=== PATIENT | male | born 1940 | race Asian ===

== ENCOUNTER 2017-02-14 14:28 | Inpatient (IN) | payer MEDICARE, OTHER ==
[~2017-02-14] VITALS: Ht 162.6 cm; Wt 75.9 kg
[~2017-02-14 14:28] MED LIST: ACET-2902 PO; ALLO300 PO; AMLO-511 PO; ASPI-1093 PO; ATOR20TA86 PO; HYDR-2924 PO; INSLAN SQ
[2017-02-14 15:42] LABS: GLUCOSE,POINT OF CARE 152 MG/DL (70-110)
[2017-02-14] MEDS ORDERED: FAMOTIDINE 10 MG/ML 2 ML VIAL IVP ONE (16:45)
[2017-02-14] MEDS ORDERED: ONDANSETRON HCL 4 MG/2 ML VIAL IVP ONE (16:45)
[2017-02-14] MEDS ORDERED: MORPHINE SULFATE 2 MG/ML SYRINGE IVP ONE ×2 (16:45→21:45)
[2017-02-14 17:23] LABS: BASOPHILS # (AUTO) 0.05 K/uL (0.00-0.20); BASOPHILS % (AUTO) 0.3 % (0.0-2.0); EOSINOPHILS # (AUTO) 0.09 K/uL (0.00-0.70); EOSINOPHILS % (AUTO) 0.57 % (1.0-6.0); HEMOGLOBIN 11.4 g/dL (13.5-17.5); LYMPHOCYTES # (AUTO) 1.4 K/uL (1.0-4.8); LYMPHOCYTES % (AUTO) 8.9 % (22.0-44.0); MEAN CORPUSCULAR HEMOGLOBIN 31.8 pg (26.0-34.0); MEAN CORPUSCULAR HGB CONC 32.6 G/dL (31.0-37.0); MEAN CORPUSCULAR VOLUME 98 fL (80-100); MONOCYTES # (AUTO) 1.1 K/uL (0.1-1.0); MONOCYTES % (AUTO) 6.7 % (2.0-9.0); NEUTROPHILS # (AUTO) 13.4 K/uL (1.8-7.7); NEUTROPHILS % (AUTO) 83.6 % (40.0-70.0); PLATELET COUNT (AUTO) 177 K/uL (150-450); RED BLOOD CELL COUNT(AUTO) 3.58 MIL/uL (4.50-5.90); RED CELL DISTRIBUTION WIDTH 14.7 % (11.5-14.5)
[2017-02-14 17:31] LABS: ANION GAP 10 mmol/L (8-16); CALCIUM, TOTAL 9.7 mg/dL (8.8-10.5); CARBON DIOXIDE 30 mmol/L (22-29); CHLORIDE 92 mmol/L (98-107); CREATININE 7.14 mg/dL (0.60-1.30); GLOMERULAR FILTR. RATE CALC 8 mL/min (>60); POTASSIUM 4.7 mmol/L (3.5-5.1); SODIUM SERUM 132 mmol/L (136-145); UREA NITROGEN, BLOOD 40 mg/dL (7-18)
[2017-02-14 17:36] LABS: INR 1.1 (0.9-1.1); PROTHROMBIN TIME 11.2 SEC (9.4-11.6)
[2017-02-14 17:51] LABS: B-TYPE NATRIURETIC PEPTIDE 3560 pg/mL (0-100)
[2017-02-14 17:57] LABS: ALANINE AMINOTRANSFERASE 31 U/L (12-78); ALBUMIN 3.3 g/dL (3.4-5.0); ASPARTATE AMINOTRANSFERASE 35 U/L (15-37); BILIRUBIN,TOTAL 0.9 mg/dL (0.1-1.0); CREATINE KINASE MB 1.7 ng/mL (0-5); CREATINE KINASE, TOTAL 517 U/L (39-308); TOTAL PROTEIN, SERUM 8.1 g/dL (6.4-8.2)
[2017-02-14] MEDS ORDERED: BARIUM SULFATE 0.1% SUSPENSION 450 ML BOTTLE PO ONE (18:00)
[2017-02-14] MEDS ORDERED: NITROGLYCERIN 2% (1 GM=INCH) PACKET TP ONE (19:15)
[2017-02-14] MEDS ORDERED: ONDANSETRON HCL 4 MG/2 ML VIAL IVP PRN ×2 (21:15→21:30)
[2017-02-14] MEDS ORDERED: ACETAMINOPHEN 325 MG TABLET PO PRN (21:15)
[2017-02-14] MEDS ORDERED: HEPARIN SODIUM 25000 UNITS/D5W 250 ML IV PRN (21:15)
[2017-02-14] MEDS ORDERED: ASPIRIN 325 MG EC TABLET PO ONE (21:15)
[2017-02-14] MEDS ORDERED: 0.9% SODIUM CHLORIDE 10 ML SYRINGE IVP PRN (21:15)
[2017-02-14] MEDS ORDERED: HEPARIN SODIUM,PORCINE 5,000 UNITS/ML VIAL IVP ONE (21:30)
[2017-02-14] MEDS ORDERED: MORPHINE SULFATE 2 MG/ML SYRINGE IVP PRN (21:30)
[2017-02-14] MEDS ORDERED: IPRATROPIUM BROMIDE 0.5 MG/2.5 ML NEB SOLUTION NEB PRN (21:30)
[2017-02-14] MEDS ORDERED: ZOLPIDEM TARTRATE 5 MG TABLET PO PRN (21:30)
[2017-02-14] MEDS ORDERED: MAGNESIUM HYDROXIDE SUSPENSION 30 ML UDCUP PO PRN (21:30)
[2017-02-14] MEDS ORDERED: HEPARIN SODIUM,PORCINE 5,000 UNITS/ML VIAL IVP PRN ×2 (21:30)
[2017-02-14] MEDS: HEPARIN SODIUM 25000 UNITS/D5W 250 ML IV PRN (21:37)
[2017-02-15] VITALS (8 sets, daily range): BP systolic 134–168; BP diastolic 61–88
[2017-02-15] MEDS ORDERED: SODIUM CHLORIDE 0.9% 250 ML IV ONE (02:03)
[2017-02-15] MEDS: CefTRIAXone 1 GM/DEXTROSE 50 ML IV SCH ×2 (02:22→23:41)
[2017-02-15] MEDS: NITROGLYCERIN 2% (1 GM=INCH) PACKET TP SCH ×4 (02:23→18:00)
[2017-02-15] MEDS: AZITHROMYCIN 500 MG/NS 250 ML IV SCH ×2 (02:23→23:41)
[2017-02-15] MEDS: HYDROCODONE/ACETAMINOPHEN 5-325 MG TABLET PO PRN (05:24)
[2017-02-15 06:16] LABS: BASOPHILS # (AUTO) 0.06 K/uL (0.00-0.20); BASOPHILS % (AUTO) 0.4 % (0.0-2.0); EOSINOPHILS # (AUTO) 0.41 K/uL (0.00-0.70); EOSINOPHILS % (AUTO) 3.29 % (1.0-6.0); HEMOGLOBIN 10.2 g/dL (13.5-17.5); LYMPHOCYTES # (AUTO) 1.4 K/uL (1.0-4.8); MEAN CORPUSCULAR HEMOGLOBIN 31.7 pg (26.0-34.0); MEAN CORPUSCULAR HGB CONC 32.9 G/dL (31.0-37.0); MEAN CORPUSCULAR VOLUME 96 fL (80-100); MONOCYTES # (AUTO) 0.8 K/uL (0.1-1.0); MONOCYTES % (AUTO) 6.1 % (2.0-9.0); NEUTROPHILS # (AUTO) 9.9 K/uL (1.8-7.7); NEUTROPHILS % (AUTO) 79.1 % (40.0-70.0); PLATELET COUNT (AUTO) 181 K/uL (150-450); RED BLOOD CELL COUNT(AUTO) 3.22 MIL/uL (4.50-5.90); RED CELL DISTRIBUTION WIDTH 14.6 % (11.5-14.5); WHITE BLOOD COUNT (AUTO) 12.6 K/uL (4.5-11.0)
[2017-02-15 06:25] LABS: PROTHROMBIN TIME 10.7 SEC (9.4-11.6)
[2017-02-15] MEDS: INSULIN ASPART 100 UNITS/ML SQ PRN ×2 (06:52→11:44)
[2017-02-15 07:02] LABS: ALBUMIN 2.7 g/dL (3.4-5.0); BILIRUBIN,TOTAL 0.5 mg/dL (0.1-1.0); CALCIUM, TOTAL 9.2 mg/dL (8.8-10.5); CHOL/HDL RATIO 3.2 (4.2-7.3); CREATININE 8.06 mg/dL (0.60-1.30); POTASSIUM 4.7 mmol/L (3.5-5.1); TOTAL PROTEIN, SERUM 7.1 g/dL (6.4-8.2)
[2017-02-15 08:07] LABS: GLUCOSE,POINT OF CARE 117 MG/DL (70-110)
[2017-02-15 08:17] LABS: GLUCOSE,POINT OF CARE 154 MG/DL (70-110)
[2017-02-15] MEDS: ASPIRIN 81 MG CHEWABLE TABLET PO SCH (09:00)
[2017-02-15] MEDS ORDERED: HydrALAZINE HCL 50 MG TABLET PO SCH (09:00)
[2017-02-15] MEDS: CLOPIDOGREL BISULFATE 75 MG TABLET PO SCH (09:00)
[2017-02-15] MEDS: ALLOPURINOL 100 MG TABLET PO SCH (09:00)
[2017-02-15] MEDS: PANTOPRAZOLE SODIUM 40 MG/VIAL IVP SCH (09:14)
[2017-02-15] MEDS: DOCUSATE SODIUM 100 MG CAPSULE PO SCH ×2 (09:15→21:12)
[2017-02-15] MEDS: INSULIN DETEMIR 100 UNITS/ML SQ SCH ×2 (09:18→21:00)
[2017-02-15] MEDS ORDERED: ALBUMIN HUMAN 25%-12.5GM/50ML IV BOTTLE IV PRN (12:45)
[2017-02-15] MEDS ORDERED: LIDOCAINE HCL/PF 1% 2 ML VIAL ID PRN (12:45)
[2017-02-15] MEDS ORDERED: MANNITOL 25%-12.5 GM/50 ML VIAL IVP PRN (12:45)
[2017-02-15] MEDS ORDERED: VANCOMYCIN HCL 1 GM/D5% WATER 200 ML IV PRN (13:45)
[2017-02-15 15:02] LABS: GLUCOSE,POINT OF CARE 165 MG/DL (70-110)
[2017-02-15] MEDS ORDERED: VANCOMYCIN HCL 1 GM/D5% WATER 200 ML IV ONE (16:00)
[2017-02-15] MEDS: AmLODIPine BESYLATE 5 MG TABLET PO SCH (16:07)
[2017-02-15] MEDS: CARVEDILOL 3.125 MG TABLET PO SCH ×2 (16:08→21:12)
[2017-02-15] MEDS ORDERED: LIDOCAINE HCL/PF 1% 2 ML VIAL IM ONE (17:34)
[2017-02-15] MEDS: DEXTROSE 50%-WATER 25 GM/50 ML SYRINGE IVP PRN (18:16)
[2017-02-15] MEDS: ENALAPRIL MALEATE 5 MG TABLET PO SCH (18:43)
[2017-02-15] MEDS: HEPARIN SODIUM 25000 UNITS/D5W 250 ML IV PRN (19:49)
[2017-02-15] MEDS ORDERED: ATORVASTATIN CALCIUM 20 MG TABLET PO SCH (21:00)
[2017-02-15] MEDS: ATORVASTATIN CALCIUM 40 MG TABLET PO SCH (21:13)
[2017-02-16] VITALS: BP 130/51
[2017-02-16 04:00] VITALS: BP 133/65
[2017-02-16 05:19] LABS: ALBUMIN 2.4 g/dL (3.4-5.0); BILIRUBIN,TOTAL 0.5 mg/dL (0.1-1.0); CALCIUM, TOTAL 9.1 mg/dL (8.8-10.5); CREATININE 5.9 mg/dL (0.60-1.30); MAGNESIUM 1.7 mg/dL (1.80-2.40); POTASSIUM 4.4 mmol/L (3.5-5.1); TOTAL PROTEIN, SERUM 6.7 g/dL (6.4-8.2)
[2017-02-16 05:29] LABS: EOSINOPHILS % (AUTO) 0.1 % (1.0-6.0); HEMOGLOBIN 9.6 g/dL (13.5-17.5); LYMPHOCYTES # (AUTO) 1.2 K/uL (1.0-4.8); LYMPHOCYTES % (AUTO) 8.3 % (22.0-44.0); MEAN CORPUSCULAR HEMOGLOBIN 31.4 pg (26.0-34.0); MEAN CORPUSCULAR HGB CONC 32.1 G/dL (31.0-37.0); MEAN CORPUSCULAR VOLUME 98 fL (80-100); MONOCYTES # (AUTO) 1.1 K/uL (0.1-1.0); MONOCYTES % (AUTO) 7.8 % (2.0-9.0); NEUTROPHILS # (AUTO) 11.9 K/uL (1.8-7.7); NEUTROPHILS % (AUTO) 83.8 % (40.0-70.0); PLATELET COUNT (AUTO) 176 K/uL (150-450); RED BLOOD CELL COUNT(AUTO) 3.07 MIL/uL (4.50-5.90); RED CELL DISTRIBUTION WIDTH 14.9 % (11.5-14.5); WHITE BLOOD COUNT (AUTO) 14.3 K/uL (4.5-11.0)
[2017-02-16] MEDS: NITROGLYCERIN 2% (1 GM=INCH) PACKET TP SCH ×4 (06:44→17:50)
[2017-02-16] MEDS: DEXTROSE 50%-WATER 25 GM/50 ML SYRINGE IVP PRN (06:45)
[2017-02-16 07:51] LABS: GLUCOSE,POINT OF CARE 44 MG/DL (70-110)
[2017-02-16 07:51] LABS: GLUCOSE,POINT OF CARE 99 MG/DL (70-110)
[2017-02-16 07:51] LABS: GLUCOSE,POINT OF CARE 143 MG/DL (70-110)
[2017-02-16 07:52] LABS: GLUCOSE,POINT OF CARE 53 MG/DL (70-110)
[2017-02-16 07:52] LABS: GLUCOSE,POINT OF CARE 108 MG/DL (70-110)
[2017-02-16 08:00] VITALS: BP 140/55
[2017-02-16] MEDS: PANTOPRAZOLE SODIUM 40 MG/VIAL IVP SCH (09:02)
[2017-02-16] MEDS: ASPIRIN 81 MG CHEWABLE TABLET PO SCH (09:02)
[2017-02-16] MEDS: CLOPIDOGREL BISULFATE 75 MG TABLET PO SCH (09:03)
[2017-02-16] MEDS: AmLODIPine BESYLATE 5 MG TABLET PO SCH (09:03)
[2017-02-16] MEDS: DOCUSATE SODIUM 100 MG CAPSULE PO SCH ×2 (09:03→20:56)
[2017-02-16] MEDS: CARVEDILOL 3.125 MG TABLET PO SCH ×2 (09:03→20:57)
[2017-02-16] MEDS: ENALAPRIL MALEATE 5 MG TABLET PO SCH (09:07)
[2017-02-16] MEDS: ALLOPURINOL 100 MG TABLET PO SCH (09:07)
[2017-02-16 12:00] VITALS: BP 120/57
[2017-02-16] MEDS: INSULIN ASPART 100 UNITS/ML SQ PRN ×2 (12:06→23:37)
[2017-02-16] MEDS: HEPARIN SODIUM 25000 UNITS/D5W 250 ML IV PRN (15:17)
[2017-02-16 15:57] LABS: GLUCOSE,POINT OF CARE 141 MG/DL (70-110)
[2017-02-16 16:00] VITALS: BP 137/67
[2017-02-16 20:00] VITALS: BP 150/77
[2017-02-16] MEDS: ATORVASTATIN CALCIUM 40 MG TABLET PO SCH (20:57)
[2017-02-16] MEDS: INSULIN DETEMIR 100 UNITS/ML SQ SCH (21:00)
[2017-02-17] VITALS (9 sets, daily range): BP systolic 104–144; BP diastolic 47–68
[2017-02-17] MEDS ORDERED: SODIUM CHLORIDE 0.9% 250 ML IV ONE ×2 (01:35→23:56)
[2017-02-17] MEDS: NITROGLYCERIN 2% (1 GM=INCH) PACKET TP SCH ×4 (01:37→18:16)
[2017-02-17 04:07] LABS: GLUCOSE,POINT OF CARE 124 MG/DL (70-110)
[2017-02-17] MEDS: HYDROCODONE/ACETAMINOPHEN 5-325 MG TABLET PO PRN ×4 (04:12→23:35)
[2017-02-17 05:12] LABS: GLUCOSE,POINT OF CARE 114 MG/DL (70-110)
[2017-02-17 05:40] LABS: BASOPHILS % (AUTO) 0.1 % (0.0-2.0); EOSINOPHILS % (AUTO) 0.4 % (1.0-6.0); HEMATOCRIT 27.8 % (41-53); HEMOGLOBIN 8.7 g/dL (13.5-17.5); LYMPHOCYTES # (AUTO) 0.9 K/uL (1.0-4.8); LYMPHOCYTES % (AUTO) 6.9 % (22.0-44.0); MEAN CORPUSCULAR HEMOGLOBIN 30.7 pg (26.0-34.0); MEAN CORPUSCULAR HGB CONC 31.4 G/dL (31.0-37.0); MEAN CORPUSCULAR VOLUME 98 fL (80-100); MONOCYTES # (AUTO) 0.9 K/uL (0.1-1.0); MONOCYTES % (AUTO) 6.6 % (2.0-9.0); NEUTROPHILS # (AUTO) 11.7 K/uL (1.8-7.7); PLATELET COUNT (AUTO) 187 K/uL (150-450); RED BLOOD CELL COUNT(AUTO) 2.85 MIL/uL (4.50-5.90); RED CELL DISTRIBUTION WIDTH 15.6 % (11.5-14.5); WHITE BLOOD COUNT (AUTO) 13.7 K/uL (4.5-11.0)
[2017-02-17 06:11] LABS: ALBUMIN 2.3 g/dL (3.4-5.0); BILIRUBIN,TOTAL 0.5 mg/dL (0.1-1.0); CALCIUM, TOTAL 9.2 mg/dL (8.8-10.5); CREATININE 8.31 mg/dL (0.60-1.30); MAGNESIUM 1.9 mg/dL (1.80-2.40); TOTAL PROTEIN, SERUM 6.5 g/dL (6.4-8.2)
[2017-02-17 07:12] LABS: GLUCOSE,POINT OF CARE 149 MG/DL (70-110)
[2017-02-17] MEDS ORDERED: VANCOMYCIN HCL 1.25 GM in DEXTROSE 5%-WATER 250 ML IV ONE (08:00)
[2017-02-17] MEDS: CLOPIDOGREL BISULFATE 75 MG TABLET PO SCH (08:25)
[2017-02-17] MEDS: PANTOPRAZOLE SODIUM 40 MG/VIAL IVP SCH (08:25)
[2017-02-17] MEDS: ENALAPRIL MALEATE 5 MG TABLET PO SCH (08:26)
[2017-02-17] MEDS: CARVEDILOL 3.125 MG TABLET PO SCH ×2 (08:26→21:02)
[2017-02-17] MEDS: ASPIRIN 81 MG CHEWABLE TABLET PO SCH (08:27)
[2017-02-17] MEDS: AmLODIPine BESYLATE 5 MG TABLET PO SCH (08:28)
[2017-02-17] MEDS: DOCUSATE SODIUM 100 MG CAPSULE PO SCH ×2 (08:28→21:02)
[2017-02-17] MEDS: ALLOPURINOL 100 MG TABLET PO SCH (08:28)
[2017-02-17] MEDS ORDERED: AMPICILLIN SODIUM/SULBACTAM NA 3 GM in SODIUM CHLORIDE 0.9% 100 ML IV SCH (12:00)
[2017-02-17] MEDS: INSULIN ASPART 100 UNITS/ML SQ PRN ×2 (12:29→18:00)
[2017-02-17 17:42] LABS: GLUCOSE COMMENT 1 Received Meds; GLUCOSE,POINT OF CARE 160 MG/DL (70-110)
[2017-02-17] MEDS: INSULIN DETEMIR 100 UNITS/ML SQ SCH (21:00)
[2017-02-17] MEDS: ATORVASTATIN CALCIUM 40 MG TABLET PO SCH (21:02)
[2017-02-18] VITALS (8 sets, daily range): BP systolic 116–138; BP diastolic 42–85
[2017-02-18] MEDS: NITROGLYCERIN 2% (1 GM=INCH) PACKET TP SCH ×4 (00:06→18:13)
[2017-02-18] MEDS: NAFCILLIN SODIUM 2 GM in DEXTROSE 5%-WATER 100 ML IV SCH ×6 (00:08→20:31)
[2017-02-18] MEDS: AZITHROMYCIN 500 MG/NS 250 ML IV SCH ×2 (00:49→23:22)
[2017-02-18 07:07] LABS: BASOPHILS % (AUTO) 0.1 % (0.0-2.0); EOSINOPHILS % (AUTO) 2.3 % (1.0-6.0); HEMATOCRIT 28.6 % (41-53); HEMOGLOBIN 9.2 g/dL (13.5-17.5); LYMPHOCYTES # (AUTO) 1.3 K/uL (1.0-4.8); LYMPHOCYTES % (AUTO) 12.8 % (22.0-44.0); MEAN CORPUSCULAR HEMOGLOBIN 31.3 pg (26.0-34.0); MEAN CORPUSCULAR HGB CONC 32.1 G/dL (31.0-37.0); MEAN CORPUSCULAR VOLUME 97 fL (80-100); MONOCYTES # (AUTO) 0.9 K/uL (0.1-1.0); NEUTROPHILS # (AUTO) 7.5 K/uL (1.8-7.7); NEUTROPHILS % (AUTO) 75.8 % (40.0-70.0); PLATELET COUNT (AUTO) 190 K/uL (150-450); RED BLOOD CELL COUNT(AUTO) 2.94 MIL/uL (4.50-5.90); RED CELL DISTRIBUTION WIDTH 15.1 % (11.5-14.5); WHITE BLOOD COUNT (AUTO) 9.9 K/uL (4.5-11.0)
[2017-02-18 07:09] LABS: ALBUMIN 2.2 g/dL (3.4-5.0); BILIRUBIN,TOTAL 0.9 mg/dL (0.1-1.0); CREATININE 10.72 mg/dL (0.60-1.30); MAGNESIUM 2.1 mg/dL (1.80-2.40); POTASSIUM 5.1 mmol/L (3.5-5.1); TOTAL PROTEIN, SERUM 6.5 g/dL (6.4-8.2)
[2017-02-18] MEDS: PANTOPRAZOLE SODIUM 40 MG/VIAL IVP SCH (09:55)
[2017-02-18] MEDS: DOCUSATE SODIUM 100 MG CAPSULE PO SCH ×2 (09:55→20:31)
[2017-02-18] MEDS: ASPIRIN 81 MG CHEWABLE TABLET PO SCH (09:56)
[2017-02-18] MEDS: CARVEDILOL 3.125 MG TABLET PO SCH ×2 (09:56→20:31)
[2017-02-18] MEDS: CLOPIDOGREL BISULFATE 75 MG TABLET PO SCH (09:56)
[2017-02-18] MEDS: ALLOPURINOL 100 MG TABLET PO SCH (09:57)
[2017-02-18] MEDS: ENALAPRIL MALEATE 5 MG TABLET PO SCH (16:32)
[2017-02-18] MEDS ORDERED: INDIUM IN-111 OXYQUINOLINE/.5MCL ISOTOPE 1 EA INJ INJ ONE (17:20)
[2017-02-18] MEDS: INSULIN DETEMIR 100 UNITS/ML SQ SCH (20:30)
[2017-02-18] MEDS: ATORVASTATIN CALCIUM 40 MG TABLET PO SCH (20:31)
[2017-02-18] MEDS: INSULIN ASPART 100 UNITS/ML SQ PRN (20:34)
[2017-02-19] VITALS (9 sets, daily range): BP systolic 100–137; BP diastolic 41–56
[2017-02-19] MEDS: NITROGLYCERIN 2% (1 GM=INCH) PACKET TP SCH ×4 (01:21→17:10)
[2017-02-19] MEDS: NAFCILLIN SODIUM 2 GM in DEXTROSE 5%-WATER 100 ML IV SCH ×6 (01:22→20:17)
[2017-02-19 07:29] LABS: BASOPHILS # (AUTO) 0.02 K/uL (0.00-0.20); BASOPHILS % (AUTO) 0.2 % (0.0-2.0); EOSINOPHILS # (AUTO) 0.15 K/uL (0.00-0.70); EOSINOPHILS % (AUTO) 1.67 % (1.0-6.0); HEMATOCRIT 27.6 % (41-53); HEMOGLOBIN 9.1 g/dL (13.5-17.5); LYMPHOCYTES % (AUTO) 11.5 % (22.0-44.0); MEAN CORPUSCULAR HEMOGLOBIN 31.9 pg (26.0-34.0); MEAN CORPUSCULAR HGB CONC 32.8 G/dL (31.0-37.0); MEAN CORPUSCULAR VOLUME 97 fL (80-100); MONOCYTES # (AUTO) 0.9 K/uL (0.1-1.0); MONOCYTES % (AUTO) 9.7 % (2.0-9.0); NEUTROPHILS # (AUTO) 6.7 K/uL (1.8-7.7); NEUTROPHILS % (AUTO) 76.9 % (40.0-70.0); PLATELET COUNT (AUTO) 203 K/uL (150-450); RED BLOOD CELL COUNT(AUTO) 2.84 MIL/uL (4.50-5.90); RED CELL DISTRIBUTION WIDTH 15.3 % (11.5-14.5); WHITE BLOOD COUNT (AUTO) 8.8 K/uL (4.5-11.0)
[2017-02-19] MEDS ORDERED: FentaNYL CITRATE-PF 100 MCG/2 ML VIAL ONE (07:40)
[2017-02-19] MEDS ORDERED: BENZOCAINE 20% 50 MCG/SPRAY 57 GM ONE (07:41)
[2017-02-19] MEDS ORDERED: MIDAZOLAM HCL 2 MG/2 ML VIAL ONE (07:41)
[2017-02-19] MEDS ORDERED: SODIUM CHLORIDE 0.9% 500 ML IV ONE (07:46)
[2017-02-19] MEDS ORDERED: MIDAZOLAM HCL 2 MG/2 ML VIAL IVP ONE (07:47)
[2017-02-19] MEDS ORDERED: FentaNYL CITRATE-PF 100 MCG/2 ML VIAL IVP ONE (07:47)
[2017-02-19] MEDS ORDERED: BENZOCAINE 20% 30 ML SOLUTION TP ONE (07:49)
[2017-02-19 07:54] LABS: BILIRUBIN,TOTAL 2.1 mg/dL (0.1-1.0); CREATININE 7.75 mg/dL (0.60-1.30); MAGNESIUM 2.1 mg/dL (1.80-2.40); POTASSIUM 4.7 mmol/L (3.5-5.1); TOTAL PROTEIN, SERUM 6.2 g/dL (6.4-8.2)
[2017-02-19] MEDS: ENALAPRIL MALEATE 5 MG TABLET PO SCH (09:00)
[2017-02-19] MEDS ORDERED: AmLODIPine BESYLATE 2.5 MG TABLET PO SCH (09:00)
[2017-02-19] MEDS: PANTOPRAZOLE SODIUM 40 MG/VIAL IVP SCH (09:10)
[2017-02-19] MEDS: CLOPIDOGREL BISULFATE 75 MG TABLET PO SCH (09:18)
[2017-02-19] MEDS: DOCUSATE SODIUM 100 MG CAPSULE PO SCH ×2 (09:18→20:16)
[2017-02-19] MEDS: CARVEDILOL 3.125 MG TABLET PO SCH ×2 (09:18→20:16)
[2017-02-19] MEDS: ALLOPURINOL 100 MG TABLET PO SCH (09:18)
[2017-02-19] MEDS: ASPIRIN 81 MG CHEWABLE TABLET PO SCH (09:18)
[2017-02-19] MEDS: INSULIN ASPART 100 UNITS/ML SQ PRN ×2 (12:28→18:04)
[2017-02-19 17:08] LABS: GLUCOSE,POINT OF CARE 105 MG/DL (70-110)
[2017-02-19] MEDS: ATORVASTATIN CALCIUM 40 MG TABLET PO SCH (20:16)
[2017-02-19] MEDS: OXYGEN THERAPY IH SCH (20:17)
[2017-02-19] MEDS: INSULIN DETEMIR 100 UNITS/ML SQ SCH (20:22)
[2017-02-20] MEDS: NITROGLYCERIN 2% (1 GM=INCH) PACKET TP SCH ×4 (00:24→17:55)
[2017-02-20] MEDS: NAFCILLIN SODIUM 2 GM in DEXTROSE 5%-WATER 100 ML IV SCH ×6 (00:25→21:19)
[2017-02-20 01:04] LABS: GLUCOSE COMMENT 1 Received Meds; GLUCOSE,POINT OF CARE 176 MG/DL (70-110)
[2017-02-20 04:35] VITALS: BP 126/50
[2017-02-20] MEDS: INSULIN ASPART 100 UNITS/ML SQ PRN ×2 (06:25→17:55)
[2017-02-20 06:49] LABS: BASOPHILS % (AUTO) 0.1 % (0.0-2.0); EOSINOPHILS % (AUTO) 4.1 % (1.0-6.0); HEMATOCRIT 29.4 % (41-53); HEMOGLOBIN 9.4 g/dL (13.5-17.5); LYMPHOCYTES # (AUTO) 1.5 K/uL (1.0-4.8); LYMPHOCYTES % (AUTO) 15.2 % (22.0-44.0); MEAN CORPUSCULAR VOLUME 97 fL (80-100); MONOCYTES % (AUTO) 10.2 % (2.0-9.0); NEUTROPHILS % (AUTO) 70.4 % (40.0-70.0); PLATELET COUNT (AUTO) 241 K/uL (150-450); RED BLOOD CELL COUNT(AUTO) 3.03 MIL/uL (4.50-5.90); RED CELL DISTRIBUTION WIDTH 15.8 % (11.5-14.5); WHITE BLOOD COUNT (AUTO) 9.9 K/uL (4.5-11.0)
[2017-02-20 07:20] VITALS: BP 123/88
[2017-02-20 07:24] LABS: ALBUMIN 1.9 g/dL (3.4-5.0); BILIRUBIN,TOTAL 2.6 mg/dL (0.1-1.0); CALCIUM, TOTAL 9.1 mg/dL (8.8-10.5); CREATININE 10.27 mg/dL (0.60-1.30); MAGNESIUM 2.4 mg/dL (1.80-2.40); POTASSIUM 5.2 mmol/L (3.5-5.1); TOTAL PROTEIN, SERUM 6.4 g/dL (6.4-8.2)
[2017-02-20] MEDS: OXYGEN THERAPY IH SCH ×2 (07:38→21:19)
[2017-02-20] MEDS: PANTOPRAZOLE SODIUM 40 MG/VIAL IVP SCH (07:41)
[2017-02-20] MEDS ORDERED: SODIUM CHLORIDE 0.9% 100 ML ONE (07:41)
[2017-02-20] MEDS: CARVEDILOL 3.125 MG TABLET PO SCH ×2 (09:00→21:19)
[2017-02-20] MEDS: DOCUSATE SODIUM 100 MG CAPSULE PO SCH ×2 (09:00→21:00)
[2017-02-20] MEDS: ASPIRIN 81 MG CHEWABLE TABLET PO SCH (09:00)
[2017-02-20] MEDS: CLOPIDOGREL BISULFATE 75 MG TABLET PO SCH (09:01)
[2017-02-20] MEDS: ALLOPURINOL 100 MG TABLET PO SCH (09:01)
[2017-02-20] MEDS ORDERED: SODIUM CHLORIDE 0.9% 2,000 ML IV ONE (09:11)
[2017-02-20 10:44] LABS: GLUCOSE,POINT OF CARE 143 MG/DL (70-110)
[2017-02-20 10:44] LABS: GLUCOSE,POINT OF CARE 125 MG/DL (70-110)
[2017-02-20 11:05] VITALS: BP 123/74
[2017-02-20] MEDS ORDERED: ALBUMIN HUMAN 25%-12.5GM/50ML IV BOTTLE IV ONE (12:48)
[2017-02-20] MEDS ORDERED: LIDOCAINE HCL/PF 1% 2 ML VIAL IM ONE (12:48)
[2017-02-20] MEDS: AZITHROMYCIN 250 MG TABLET PO SCH (13:52)
[2017-02-20] MEDS: HYDROCODONE/ACETAMINOPHEN 5-325 MG TABLET PO PRN (16:02)
[2017-02-20] MEDS: ENALAPRIL MALEATE 5 MG TABLET PO SCH (16:02)
[2017-02-20 16:13] VITALS: BP 141/75
[2017-02-20 18:00] VITALS: BP 143/55
[2017-02-20 20:00] VITALS: BP 122/46
[2017-02-20] MEDS: INSULIN DETEMIR 100 UNITS/ML SQ SCH (21:00)
[2017-02-20] MEDS: ATORVASTATIN CALCIUM 40 MG TABLET PO SCH (21:19)
[2017-02-21] VITALS (18 sets, daily range): BP systolic 119–158; BP diastolic 38–72
[2017-02-21] MEDS: NITROGLYCERIN 2% (1 GM=INCH) PACKET TP SCH ×2 (00:08→05:22)
[2017-02-21] MEDS: NAFCILLIN SODIUM 2 GM in DEXTROSE 5%-WATER 100 ML IV SCH ×6 (01:29→21:12)
[2017-02-21 07:15] LABS: ALBUMIN 1.7 g/dL (3.4-5.0); BILIRUBIN,TOTAL 2.4 mg/dL (0.1-1.0); CALCIUM, TOTAL 9.1 mg/dL (8.8-10.5); CREATININE 7.24 mg/dL (0.60-1.30); POTASSIUM 4.7 mmol/L (3.5-5.1); TOTAL PROTEIN, SERUM 6.1 g/dL (6.4-8.2)
[2017-02-21 07:22] LABS: BASOPHILS # (AUTO) 0.03 K/uL (0.00-0.20); BASOPHILS % (AUTO) 0.4 % (0.0-2.0); EOSINOPHILS # (AUTO) 0.47 K/uL (0.00-0.70); EOSINOPHILS % (AUTO) 5.11 % (1.0-6.0); HEMATOCRIT 27.1 % (41-53); HEMOGLOBIN 8.8 g/dL (13.5-17.5); LYMPHOCYTES # (AUTO) 1.3 K/uL (1.0-4.8); LYMPHOCYTES % (AUTO) 13.7 % (22.0-44.0); MEAN CORPUSCULAR HEMOGLOBIN 31.4 pg (26.0-34.0); MEAN CORPUSCULAR HGB CONC 32.4 G/dL (31.0-37.0); MEAN CORPUSCULAR VOLUME 97 fL (80-100); MONOCYTES # (AUTO) 0.9 K/uL (0.1-1.0); MONOCYTES % (AUTO) 10.1 % (2.0-9.0); NEUTROPHILS # (AUTO) 6.5 K/uL (1.8-7.7); NEUTROPHILS % (AUTO) 70.8 % (40.0-70.0); PLATELET COUNT (AUTO) 235 K/uL (150-450); RED BLOOD CELL COUNT(AUTO) 2.79 MIL/uL (4.50-5.90); RED CELL DISTRIBUTION WIDTH 15.5 % (11.5-14.5); WHITE BLOOD COUNT (AUTO) 9.2 K/uL (4.5-11.0)
[2017-02-21 07:37] LABS: GLUCOSE,POINT OF CARE 127 MG/DL (70-110)
[2017-02-21 07:37] LABS: GLUCOSE,POINT OF CARE 128 MG/DL (70-110)
[2017-02-21 07:37] LABS: GLUCOSE,POINT OF CARE 152 MG/DL (70-110)
[2017-02-21 08:33] LABS: RBC MORPHOLOGY COMMENT DIMORPHIC RBC
[2017-02-21] MEDS ORDERED: LIDOCAINE HCL/PF 1% 30 ML VIAL ONE ×2 (08:44→09:17)
[2017-02-21] MEDS ORDERED: SODIUM BICARBONATE 50 MEQ/50 ML VIAL ONE (08:44)
[2017-02-21] MEDS ORDERED: HEPARIN SODIUM 1000 UNITS/NS 1,000 ML ONE (08:45)
[2017-02-21] MEDS ORDERED: IOHEXOL 300 MG/ML 150 ML VIAL ONE (08:45)
[2017-02-21] MEDS: CLOPIDOGREL BISULFATE 75 MG TABLET PO SCH (09:00)
[2017-02-21] MEDS ORDERED: IOHEXOL 300 MG/ML 100 ML VIAL ONE ×2 (09:08→09:45)
[2017-02-21] MEDS ORDERED: HEPARIN SODIUM 2,000 UNITS in HEPARIN SODIUM 1000 UNITS/NS 1,000 ML IARTER ONE (09:43)
[2017-02-21] MEDS ORDERED: SODIUM CHLORIDE 0.9% 500 ML IV ONE (09:43)
[2017-02-21] MEDS ORDERED: IOHEXOL 300 MG/ML 100 ML VIAL IARTER ONE ×2 (09:45)
[2017-02-21] MEDS ORDERED: LIDOCAINE 1% 30 ML/SOD BICARB 8.4% 4 ML SQ ONE (09:45)
[2017-02-21] MEDS ORDERED: IOHEXOL 300 MG/ML 150 ML VIAL IARTER ONE (09:45)
[2017-02-21] MEDS: ALLOPURINOL 100 MG TABLET PO SCH (10:53)
[2017-02-21] MEDS: AZITHROMYCIN 250 MG TABLET PO SCH (10:53)
[2017-02-21] MEDS: PANTOPRAZOLE SODIUM 40 MG/VIAL IVP SCH (10:53)
[2017-02-21] MEDS: DOCUSATE SODIUM 100 MG CAPSULE PO SCH ×2 (10:54→20:47)
[2017-02-21] MEDS: OXYGEN THERAPY IH SCH ×2 (10:55→20:39)
[2017-02-21] MEDS: HYDROCODONE/ACETAMINOPHEN 5-325 MG TABLET PO PRN ×2 (15:09→20:39)
[2017-02-21 18:37] LABS: GLUCOSE,POINT OF CARE 96 MG/DL (70-110)
[2017-02-21 18:37] LABS: GLUCOSE,POINT OF CARE 202 MG/DL (70-110)
[2017-02-21] MEDS: CARVEDILOL 6.25 MG TABLET PO SCH (20:39)
[2017-02-21] MEDS: ATORVASTATIN CALCIUM 40 MG TABLET PO SCH (20:39)
[2017-02-21] MEDS: ISOSORBIDE MONONITRATE 60 MG ER TABLET PO SCH (20:39)
[2017-02-21] MEDS: INSULIN ASPART 100 UNITS/ML SQ PRN (20:44)
[2017-02-21] MEDS: INSULIN DETEMIR 100 UNITS/ML SQ SCH (20:50)
[2017-02-21 21:42] LABS: GLUCOSE COMMENT 1 Received Meds; GLUCOSE,POINT OF CARE 140 MG/DL (70-110)
[2017-02-21 21:42] LABS: GLUCOSE COMMENT 1 Received Meds; GLUCOSE,POINT OF CARE 189 MG/DL (70-110)
[2017-02-22] MEDS: NAFCILLIN SODIUM 2 GM in DEXTROSE 5%-WATER 100 ML IV SCH ×6 (02:02→21:38)
[2017-02-22 04:58] VITALS: BP 131/61
[2017-02-22 06:21] LABS: BASOPHILS % (AUTO) 0.4 % (0.0-2.0); EOSINOPHILS % (AUTO) 5.9 % (1.0-6.0); HEMATOCRIT 27.2 % (41-53); HEMOGLOBIN 8.8 g/dL (13.5-17.5); LYMPHOCYTES # (AUTO) 2.2 K/uL (1.0-4.8); MEAN CORPUSCULAR HEMOGLOBIN 31.2 pg (26.0-34.0); MEAN CORPUSCULAR HGB CONC 32.2 G/dL (31.0-37.0); MEAN CORPUSCULAR VOLUME 97 fL (80-100); MONOCYTES # (AUTO) 0.9 K/uL (0.1-1.0); MONOCYTES % (AUTO) 8.8 % (2.0-9.0); NEUTROPHILS # (AUTO) 6.8 K/uL (1.8-7.7); NEUTROPHILS % (AUTO) 63.9 % (40.0-70.0); PLATELET COUNT (AUTO) 267 K/uL (150-450); RED BLOOD CELL COUNT(AUTO) 2.81 MIL/uL (4.50-5.90); WHITE BLOOD COUNT (AUTO) 10.7 K/uL (4.5-11.0)
[2017-02-22 06:50] LABS: ALBUMIN 1.7 g/dL (3.4-5.0); BILIRUBIN,TOTAL 2.3 mg/dL (0.1-1.0); CALCIUM, TOTAL 9.1 mg/dL (8.8-10.5); CREATININE 9.45 mg/dL (0.60-1.30); MAGNESIUM 2.4 mg/dL (1.80-2.40); POTASSIUM 4.7 mmol/L (3.5-5.1); TOTAL PROTEIN, SERUM 6.2 g/dL (6.4-8.2)
[2017-02-22 07:21] VITALS: BP 134/57
[2017-02-22] MEDS: OXYGEN THERAPY IH SCH ×2 (08:39→20:20)
[2017-02-22] MEDS: PANTOPRAZOLE SODIUM 40 MG/VIAL IVP SCH (08:39)
[2017-02-22] MEDS: DOCUSATE SODIUM 100 MG CAPSULE PO SCH ×3 (09:00→20:19)
[2017-02-22] MEDS ORDERED: SODIUM CHLORIDE 0.9% 2,000 ML IV ONE (09:53)
[2017-02-22 11:23] VITALS: BP 164/71
[2017-02-22] MEDS: INSULIN ASPART 100 UNITS/ML SQ PRN ×3 (12:33→20:26)
[2017-02-22] MEDS: ASPIRIN 81 MG CHEWABLE TABLET PO SCH (14:17)
[2017-02-22] MEDS: CARVEDILOL 6.25 MG TABLET PO SCH ×2 (14:18→20:20)
[2017-02-22] MEDS: CLOPIDOGREL BISULFATE 75 MG TABLET PO SCH (14:19)
[2017-02-22] MEDS: ISOSORBIDE MONONITRATE 60 MG ER TABLET PO SCH (14:19)
[2017-02-22] MEDS: ALLOPURINOL 100 MG TABLET PO SCH (14:19)
[2017-02-22] MEDS: AZITHROMYCIN 250 MG TABLET PO SCH (14:19)
[2017-02-22] MEDS ORDERED: LIDOCAINE HCL/PF 1% 2 ML VIAL ID PRN (14:45)
[2017-02-22] MEDS ORDERED: MANNITOL 25%-12.5 GM/50 ML VIAL IVP PRN (14:45)
[2017-02-22] MEDS ORDERED: ALBUMIN HUMAN 25%-12.5GM/50ML IV BOTTLE IV PRN (14:45)
[2017-02-22 16:46] VITALS: BP 150/68
[2017-02-22] MEDS ORDERED: LIDOCAINE HCL/PF 1% 2 ML VIAL IM ONE (18:22)
[2017-02-22 19:14] VITALS: BP 131/59
[2017-02-22] MEDS: ATORVASTATIN CALCIUM 40 MG TABLET PO SCH (20:20)
[2017-02-22] MEDS: INSULIN DETEMIR 100 UNITS/ML SQ SCH (20:31)
[2017-02-22 22:47] LABS: GLUCOSE,POINT OF CARE 79 MG/DL (70-110)
[2017-02-22] MEDS: ACETAMINOPHEN 325 MG TABLET PO PRN (23:53)
[2017-02-22 23:55] VITALS: BP 155/63
[2017-02-23] VITALS (7 sets, daily range): BP systolic 130–178; BP diastolic 54–79
[2017-02-23] MEDS: NAFCILLIN SODIUM 2 GM in DEXTROSE 5%-WATER 100 ML IV SCH ×6 (01:48→21:12)
[2017-02-23] MEDS: INSULIN ASPART 100 UNITS/ML SQ PRN ×3 (06:22→21:13)
[2017-02-23 06:55] LABS: ALBUMIN 1.5 g/dL (3.4-5.0); BILIRUBIN,TOTAL 1.8 mg/dL (0.1-1.0); TOTAL PROTEIN, SERUM 6.1 g/dL (6.4-8.2)
[2017-02-23 07:08] LABS: BILIRUBIN,DIRECT 0.5 mg/dL (0.00-0.20)
[2017-02-23 07:47] LABS: BASOPHILS % (AUTO) 0.5 % (0.0-2.0); EOSINOPHILS % (AUTO) 6.4 % (1.0-6.0); HEMATOCRIT 26.2 % (41-53); HEMOGLOBIN 8.3 g/dL (13.5-17.5); LYMPHOCYTES # (AUTO) 1.4 K/uL (1.0-4.8); LYMPHOCYTES % (AUTO) 16.1 % (22.0-44.0); MEAN CORPUSCULAR HEMOGLOBIN 30.9 pg (26.0-34.0); MEAN CORPUSCULAR HGB CONC 31.8 G/dL (31.0-37.0); MEAN CORPUSCULAR VOLUME 97 fL (80-100); MONOCYTES # (AUTO) 0.7 K/uL (0.1-1.0); MONOCYTES % (AUTO) 8.4 % (2.0-9.0); NEUTROPHILS # (AUTO) 6.1 K/uL (1.8-7.7); NEUTROPHILS % (AUTO) 68.6 % (40.0-70.0); PLATELET COUNT (AUTO) 222 K/uL (150-450); RED CELL DISTRIBUTION WIDTH 16.3 % (11.5-14.5); WHITE BLOOD COUNT (AUTO) 8.9 K/uL (4.5-11.0)
[2017-02-23] MEDS: AZITHROMYCIN 250 MG TABLET PO SCH (08:09)
[2017-02-23] MEDS: ISOSORBIDE MONONITRATE 60 MG ER TABLET PO SCH (08:09)
[2017-02-23] MEDS: ALLOPURINOL 100 MG TABLET PO SCH (08:09)
[2017-02-23] MEDS: CARVEDILOL 6.25 MG TABLET PO SCH ×2 (08:10→20:02)
[2017-02-23] MEDS: ACETAMINOPHEN 325 MG TABLET PO PRN ×2 (08:11→20:02)
[2017-02-23] MEDS: OXYGEN THERAPY IH SCH ×2 (08:12→20:02)
[2017-02-23] MEDS: DOCUSATE SODIUM 100 MG CAPSULE PO SCH ×2 (08:12→20:04)
[2017-02-23] MEDS: PANTOPRAZOLE SODIUM 40 MG/VIAL IVP SCH (08:12)
[2017-02-23] MEDS: ASPIRIN 81 MG CHEWABLE TABLET PO SCH (09:00)
[2017-02-23] MEDS: CLOPIDOGREL BISULFATE 75 MG TABLET PO SCH (09:00)
[2017-02-23] MEDS: HYDROCORTISONE 2.5% 30 GM CREAM TP SCH (12:12)
[2017-02-23] MEDS ORDERED: AmLODIPine BESYLATE 5 MG TABLET PO ONE (16:15)
[2017-02-23] MEDS ORDERED: HydrALAZINE HCL 20 MG/ML VIAL IVP PRN (16:15)
[2017-02-23 17:33] LABS: GLUCOSE COMMENT 1 Received Meds; GLUCOSE,POINT OF CARE 166 MG/DL (70-110)
[2017-02-23 18:39] LABS: PROCALCITONIN (PCT) 1.94 ng/mL (<0.50)
[2017-02-23 19:02] LABS: GLUCOSE,POINT OF CARE 180 MG/DL (70-110)
[2017-02-23 19:02] LABS: GLUCOSE COMMENT 1 Received Meds; GLUCOSE,POINT OF CARE 186 MG/DL (70-110)
[2017-02-23 19:36] LABS: GLUCOSE COMMENT 1 Received Meds; GLUCOSE,POINT OF CARE 157 MG/DL (70-110)
[2017-02-23] MEDS: ATORVASTATIN CALCIUM 40 MG TABLET PO SCH (20:02)
[2017-02-23] MEDS: INSULIN DETEMIR 100 UNITS/ML SQ SCH (21:12)
[2017-02-24 00:09] VITALS: BP 137/64
[2017-02-24] MEDS: NAFCILLIN SODIUM 2 GM in DEXTROSE 5%-WATER 100 ML IV SCH ×6 (01:23→21:52)
[2017-02-24 06:04] LABS: BASOPHILS % (AUTO) 0.4 % (0.0-2.0); EOSINOPHILS % (AUTO) 5.7 % (1.0-6.0); HEMATOCRIT 26.4 % (41-53); HEMOGLOBIN 8.4 g/dL (13.5-17.5); LYMPHOCYTES # (AUTO) 2.8 K/uL (1.0-4.8); MEAN CORPUSCULAR HEMOGLOBIN 30.8 pg (26.0-34.0); MEAN CORPUSCULAR HGB CONC 31.9 G/dL (31.0-37.0); MEAN CORPUSCULAR VOLUME 97 fL (80-100); MONOCYTES # (AUTO) 1.2 K/uL (0.1-1.0); MONOCYTES % (AUTO) 8.7 % (2.0-9.0); NEUTROPHILS % (AUTO) 65.2 % (40.0-70.0); PLATELET COUNT (AUTO) 276 K/uL (150-450); RED BLOOD CELL COUNT(AUTO) 2.73 MIL/uL (4.50-5.90); RED CELL DISTRIBUTION WIDTH 15.9 % (11.5-14.5); WHITE BLOOD COUNT (AUTO) 13.9 K/uL (4.5-11.0)
[2017-02-24 06:16] LABS: CALCIUM, TOTAL 9.6 mg/dL (8.8-10.5); CREATININE 8.51 mg/dL (0.60-1.30); MAGNESIUM 2.2 mg/dL (1.80-2.40); PHOSPHORUS 8.7 mg/dL (2.5-4.9); POTASSIUM 4.1 mmol/L (3.5-5.1)
[2017-02-24 07:14] VITALS: BP 143/57
[2017-02-24 07:22] LABS: GLUCOSE,POINT OF CARE 126 MG/DL (70-110)
[2017-02-24] MEDS: ALLOPURINOL 100 MG TABLET PO SCH (08:10)
[2017-02-24] MEDS: ASPIRIN 81 MG CHEWABLE TABLET PO SCH (08:10)
[2017-02-24] MEDS: ISOSORBIDE MONONITRATE 60 MG ER TABLET PO SCH (08:10)
[2017-02-24] MEDS: OXYGEN THERAPY IH SCH ×2 (08:10→20:38)
[2017-02-24] MEDS: AZITHROMYCIN 250 MG TABLET PO SCH (08:10)
[2017-02-24] MEDS: CLOPIDOGREL BISULFATE 75 MG TABLET PO SCH (08:10)
[2017-02-24] MEDS: CARVEDILOL 6.25 MG TABLET PO SCH ×2 (08:10→20:39)
[2017-02-24] MEDS: DOCUSATE SODIUM 100 MG CAPSULE PO SCH ×2 (08:10→20:39)
[2017-02-24] MEDS: HYDROCORTISONE 2.5% 30 GM CREAM TP SCH (08:11)
[2017-02-24] MEDS: PANTOPRAZOLE SODIUM 40 MG/VIAL IVP SCH (09:39)
[2017-02-24 11:10] VITALS: BP 168/61
[2017-02-24] MEDS: INSULIN ASPART 100 UNITS/ML SQ PRN ×2 (12:19→17:29)
[2017-02-24 15:01] VITALS: BP 147/57
[2017-02-24 18:17] LABS: GLUCOSE COMMENT 1 Received Meds; GLUCOSE,POINT OF CARE 159 MG/DL (70-110)
[2017-02-24 18:18] LABS: GLUCOSE COMMENT 1 Received Meds; GLUCOSE,POINT OF CARE 256 MG/DL (70-110)
[2017-02-24 20:09] VITALS: BP 158/62
[2017-02-24] MEDS: ATORVASTATIN CALCIUM 40 MG TABLET PO SCH (20:39)
[2017-02-24] MEDS: INSULIN DETEMIR 100 UNITS/ML SQ SCH (21:00)
[2017-02-24] MEDS ORDERED: 0.9% SODIUM CHLORIDE 10 ML SYRINGE IVP PRN (23:00)
[2017-02-25] VITALS (7 sets, daily range): BP systolic 146–161; BP diastolic 60–97
[2017-02-25] MEDS ORDERED: CeFAZolin 1 GM/DEXTROSE 50 ML IV ONE (02:00)
[2017-02-25] MEDS: HYDROCODONE/ACETAMINOPHEN 5-325 MG TABLET PO PRN (07:57)
[2017-02-25] MEDS: ALLOPURINOL 100 MG TABLET PO SCH (07:57)
[2017-02-25] MEDS: ASPIRIN 81 MG CHEWABLE TABLET PO SCH (07:57)
[2017-02-25] MEDS: CLOPIDOGREL BISULFATE 75 MG TABLET PO SCH (07:57)
[2017-02-25] MEDS: CARVEDILOL 6.25 MG TABLET PO SCH ×2 (07:58→20:28)
[2017-02-25] MEDS: ISOSORBIDE MONONITRATE 60 MG ER TABLET PO SCH (07:58)
[2017-02-25] MEDS: HYDROCORTISONE 2.5% 30 GM CREAM TP SCH (07:58)
[2017-02-25] MEDS: OXYGEN THERAPY IH SCH ×2 (07:58→20:28)
[2017-02-25] MEDS: DOCUSATE SODIUM 100 MG CAPSULE PO SCH ×2 (07:59→20:21)
[2017-02-25] MEDS ORDERED: SODIUM CHLORIDE 0.9% 2,000 ML IV ONE (08:48)
[2017-02-25] MEDS: PANTOPRAZOLE SODIUM 40 MG/VIAL IVP SCH (09:00)
[2017-02-25 09:35] LABS: BASOPHILS % (AUTO) 0.3 % (0.0-2.0); EOSINOPHILS % (AUTO) 3.7 % (1.0-6.0); HEMATOCRIT 24.9 % (41-53); HEMOGLOBIN 7.9 g/dL (13.5-17.5); LYMPHOCYTES # (AUTO) 1.2 K/uL (1.0-4.8); LYMPHOCYTES % (AUTO) 9.4 % (22.0-44.0); MEAN CORPUSCULAR HEMOGLOBIN 30.2 pg (26.0-34.0); MEAN CORPUSCULAR HGB CONC 31.7 G/dL (31.0-37.0); MEAN CORPUSCULAR VOLUME 95 fL (80-100); MONOCYTES # (AUTO) 0.8 K/uL (0.1-1.0); MONOCYTES % (AUTO) 6.3 % (2.0-9.0); NEUTROPHILS # (AUTO) 10.4 K/uL (1.8-7.7); NEUTROPHILS % (AUTO) 80.3 % (40.0-70.0); PLATELET COUNT (AUTO) 243 K/uL (150-450); RED BLOOD CELL COUNT(AUTO) 2.62 MIL/uL (4.50-5.90); RED CELL DISTRIBUTION WIDTH 15.9 % (11.5-14.5); WHITE BLOOD COUNT (AUTO) 12.9 K/uL (4.5-11.0)
[2017-02-25] MEDS ORDERED: SODIUM CHLORIDE 0.9% 250 ML IV ONE (09:43)
[2017-02-25] MEDS: CeFAZolin 2 GM/DEXTROSE 50 ML IV PRN (13:45)
[2017-02-25] MEDS ORDERED: LIDOCAINE HCL/PF 1% 2 ML VIAL IM ONE (17:01)
[2017-02-25 19:47] LABS: GLUCOSE COMMENT 1 Received Meds; GLUCOSE,POINT OF CARE 171 MG/DL (70-110)
[2017-02-25] MEDS: ATORVASTATIN CALCIUM 40 MG TABLET PO SCH (20:28)
[2017-02-25] MEDS: INSULIN DETEMIR 100 UNITS/ML SQ SCH (21:00)
[2017-02-26 01:07] LABS: GLUCOSE,POINT OF CARE 114 MG/DL (70-110)
[2017-02-26 01:12] LABS: GLUCOSE,POINT OF CARE 129 MG/DL (70-110)
[2017-02-26 04:05] VITALS: BP 145/71
[2017-02-26 07:07] VITALS: BP 150/70
[2017-02-26 07:39] LABS: BASOPHILS % (AUTO) 0.3 % (0.0-2.0); EOSINOPHILS % (AUTO) 4.6 % (1.0-6.0); HEMATOCRIT 24.1 % (41-53); HEMOGLOBIN 7.7 g/dL (13.5-17.5); LYMPHOCYTES % (AUTO) 17.8 % (22.0-44.0); MEAN CORPUSCULAR HEMOGLOBIN 30.4 pg (26.0-34.0); MEAN CORPUSCULAR HGB CONC 31.8 G/dL (31.0-37.0); MEAN CORPUSCULAR VOLUME 96 fL (80-100); MONOCYTES # (AUTO) 1.1 K/uL (0.1-1.0); NEUTROPHILS # (AUTO) 7.4 K/uL (1.8-7.7); NEUTROPHILS % (AUTO) 67.3 % (40.0-70.0); PLATELET COUNT (AUTO) 229 K/uL (150-450); RED BLOOD CELL COUNT(AUTO) 2.52 MIL/uL (4.50-5.90); RED CELL DISTRIBUTION WIDTH 15.7 % (11.5-14.5)
[2017-02-26 07:50] LABS: INR 1.1 (0.9-1.1); PROTHROMBIN TIME 11.7 SEC (9.4-11.6)
[2017-02-26 07:58] LABS: ALBUMIN 1.6 g/dL (3.4-5.0); BILIRUBIN,TOTAL 1.2 mg/dL (0.1-1.0); CREATININE 7.12 mg/dL (0.60-1.30); MAGNESIUM 1.9 mg/dL (1.80-2.40); POTASSIUM 4.2 mmol/L (3.5-5.1); TOTAL PROTEIN, SERUM 6.9 g/dL (6.4-8.2)
[2017-02-26] MEDS: ALLOPURINOL 100 MG TABLET PO SCH (08:33)
[2017-02-26] MEDS: ISOSORBIDE MONONITRATE 60 MG ER TABLET PO SCH (08:33)
[2017-02-26] MEDS: HYDROCORTISONE 2.5% 30 GM CREAM TP SCH (08:33)
[2017-02-26] MEDS: DOCUSATE SODIUM 100 MG CAPSULE PO SCH ×2 (08:33→20:36)
[2017-02-26] MEDS: PANTOPRAZOLE SODIUM 40 MG/VIAL IVP SCH (08:33)
[2017-02-26] MEDS: CARVEDILOL 6.25 MG TABLET PO SCH ×2 (08:33→20:36)
[2017-02-26] MEDS: ASPIRIN 81 MG CHEWABLE TABLET PO SCH (08:33)
[2017-02-26] MEDS: CLOPIDOGREL BISULFATE 75 MG TABLET PO SCH (08:33)
[2017-02-26] MEDS: OXYGEN THERAPY IH SCH ×2 (08:33→20:25)
[2017-02-26] MEDS: -POST HEMODIALYSIS NOTE- MISC SCH (08:35)
[2017-02-26] MEDS: HYDROCODONE/ACETAMINOPHEN 5-325 MG TABLET PO PRN ×2 (08:42→20:36)
[2017-02-26] MEDS ORDERED: LIDOCAINE HCL/PF 1% 30 ML VIAL ONE (09:18)
[2017-02-26] MEDS ORDERED: IOHEXOL 180 MG/ML 20 ML VIAL ONE (09:18)
[2017-02-26 10:57] VITALS: BP 142/57
[2017-02-26 11:27] LABS: GLUCOSE,POINT OF CARE 105 MG/DL (70-110)
[2017-02-26] MEDS: INSULIN ASPART 100 UNITS/ML SQ PRN (12:09)
[2017-02-26 13:42] LABS: GLUCOSE COMMENT 1 Received Meds; GLUCOSE,POINT OF CARE 54 MG/DL (70-110)
[2017-02-26 13:47] LABS: GLUCOSE COMMENT 1 Juice/Food/D50 Given; GLUCOSE,POINT OF CARE 84 MG/DL (70-110)
[2017-02-26 13:48] LABS: GLUCOSE COMMENT 1 Received Meds; GLUCOSE,POINT OF CARE 141 MG/DL (70-110)
[2017-02-26 13:48] LABS: GLUCOSE COMMENT 1 Received Meds; GLUCOSE,POINT OF CARE 183 MG/DL (70-110)
[2017-02-26 13:52] LABS: GLUCOSE,POINT OF CARE 119 MG/DL (70-110)
[2017-02-26 15:14] VITALS: BP 117/69
[2017-02-26 18:39] LABS: COLOR,BODY FLUID AMBER (LT YELLOW)
[2017-02-26 18:40] LABS: APPEARANCE,UNSPUN,BODY FLUID HAZY (CLEAR)
[2017-02-26 19:44] VITALS: BP 143/62
[2017-02-26] MEDS: INSULIN DETEMIR 100 UNITS/ML SQ SCH (20:33)
[2017-02-26] MEDS: ATORVASTATIN CALCIUM 40 MG TABLET PO SCH (20:35)
[2017-02-26 22:56] LABS: GLUCOSE COMMENT 1 Received Meds; GLUCOSE,POINT OF CARE 149 MG/DL (70-110)
[2017-02-26 23:02] LABS: GLUCOSE,POINT OF CARE 109 MG/DL (70-110)
[2017-02-26 23:02] LABS: GLUCOSE,POINT OF CARE 154 MG/DL (70-110)
[2017-02-26 23:30] VITALS: BP 102/49
[2017-02-27 05:13] VITALS: BP 159/78
[2017-02-27 06:27] LABS: GLUCOSE COMMENT 1 Received Meds; GLUCOSE,POINT OF CARE 164 MG/DL (70-110)
[2017-02-27 06:41] LABS: BASOPHILS # (AUTO) 0.05 K/uL (0.00-0.20); BASOPHILS % (AUTO) 0.4 % (0.0-2.0); EOSINOPHILS # (AUTO) 0.47 K/uL (0.00-0.70); EOSINOPHILS % (AUTO) 3.91 % (1.0-6.0); HEMATOCRIT 22.9 % (41-53); HEMOGLOBIN 7.5 g/dL (13.5-17.5); LYMPHOCYTES # (AUTO) 1.7 K/uL (1.0-4.8); MEAN CORPUSCULAR HEMOGLOBIN 31.5 pg (26.0-34.0); MEAN CORPUSCULAR VOLUME 95 fL (80-100); MONOCYTES # (AUTO) 0.9 K/uL (0.1-1.0); MONOCYTES % (AUTO) 7.4 % (2.0-9.0); NEUTROPHILS % (AUTO) 74.3 % (40.0-70.0); PLATELET COUNT (AUTO) 234 K/uL (150-450); RED CELL DISTRIBUTION WIDTH 15.7 % (11.5-14.5); WHITE BLOOD COUNT (AUTO) 12.1 K/uL (4.5-11.0)
[2017-02-27 07:12] VITALS: BP 104/78
[2017-02-27 07:13] LABS: ALBUMIN 1.6 g/dL (3.4-5.0); BILIRUBIN,TOTAL 1.2 mg/dL (0.1-1.0); CALCIUM, TOTAL 9.4 mg/dL (8.8-10.5); CREATININE 8.75 mg/dL (0.60-1.30); MAGNESIUM 2.1 mg/dL (1.80-2.40); POTASSIUM 4.6 mmol/L (3.5-5.1); TOTAL PROTEIN, SERUM 7.3 g/dL (6.4-8.2)
[2017-02-27] MEDS: OXYGEN THERAPY IH SCH ×2 (08:22→20:13)
[2017-02-27] MEDS: PANTOPRAZOLE SODIUM 40 MG/VIAL IVP SCH (08:22)
[2017-02-27] MEDS: ASPIRIN 81 MG CHEWABLE TABLET PO SCH (08:23)
[2017-02-27] MEDS: CLOPIDOGREL BISULFATE 75 MG TABLET PO SCH (08:24)
[2017-02-27] MEDS: HYDROCORTISONE 2.5% 30 GM CREAM TP SCH (08:24)
[2017-02-27] MEDS: DOCUSATE SODIUM 100 MG CAPSULE PO SCH ×2 (08:25→20:14)
[2017-02-27] MEDS: ALLOPURINOL 100 MG TABLET PO SCH (08:27)
[2017-02-27] MEDS: CARVEDILOL 6.25 MG TABLET PO SCH ×2 (08:45→20:14)
[2017-02-27] MEDS: ISOSORBIDE MONONITRATE 60 MG ER TABLET PO SCH (08:45)
[2017-02-27] MEDS: -POST HEMODIALYSIS NOTE- MISC SCH (08:45)
[2017-02-27] MEDS ORDERED: LIDOCAINE HCL/PF 1% 2 ML VIAL ID PRN (09:15)
[2017-02-27] MEDS ORDERED: ALBUMIN HUMAN 25%-12.5GM/50ML IV BOTTLE IV PRN (09:15)
[2017-02-27] MEDS ORDERED: MANNITOL 25%-12.5 GM/50 ML VIAL IVP PRN (09:15)
[2017-02-27] MEDS: CeFAZolin 2 GM/DEXTROSE 50 ML IV PRN (11:05)
[2017-02-27 12:07] LABS: GLUCOSE,POINT OF CARE 133 MG/DL (70-110)
[2017-02-27 12:07] LABS: GLUCOSE,POINT OF CARE 105 MG/DL (70-110)
[2017-02-27] MEDS: INSULIN ASPART 100 UNITS/ML SQ PRN ×2 (12:14→22:19)
[2017-02-27 12:30] VITALS: BP 116/75
[2017-02-27 15:32] VITALS: BP 129/77
[2017-02-27] MEDS ORDERED: 0.9% SODIUM CHLORIDE 5 ML NEB SOLUTION NEB ONE ×2 (15:40→16:15)
[2017-02-27] MEDS: IPRATROPIUM BROMIDE 0.5 MG/2.5 ML NEB SOLUTION NEB SCH ×3 (15:56→22:22)
[2017-02-27] MEDS ORDERED: LIDOCAINE HCL/PF 1% 2 ML VIAL IM ONE (16:22)
[2017-02-27 17:07] LABS: GLUCOSE,POINT OF CARE 135 MG/DL (70-110)
[2017-02-27 19:24] VITALS: BP 154/81
[2017-02-27] MEDS: ALBUTEROL SULFATE 2.5 MG/0.5 ML NEB SOLUTION NEB SCH ×2 (19:36→22:22)
[2017-02-27] MEDS: ATORVASTATIN CALCIUM 40 MG TABLET PO SCH (20:14)
[2017-02-27] MEDS: INSULIN DETEMIR 100 UNITS/ML SQ SCH (21:00)
[2017-02-27] MEDS: HYDROCODONE/ACETAMINOPHEN 5-325 MG TABLET PO PRN (22:17)
[2017-02-27 22:47] VITALS: BP 145/67
[2017-02-28 01:11] LABS: GLUCOSE COMMENT 1 Received Meds; GLUCOSE,POINT OF CARE 185 MG/DL (70-110)
[2017-02-28 01:37] LABS: GLUCOSE COMMENT 1 Received Meds; GLUCOSE,POINT OF CARE 219 MG/DL (70-110)
[2017-02-28] MEDS: ALBUTEROL SULFATE 2.5 MG/0.5 ML NEB SOLUTION NEB SCH ×6 (02:48→22:46)
[2017-02-28] MEDS: IPRATROPIUM BROMIDE 0.5 MG/2.5 ML NEB SOLUTION NEB SCH ×6 (02:49→22:46)
[2017-02-28 04:31] VITALS: BP 143/64
[2017-02-28 06:42] LABS: BASOPHILS # (AUTO) 0.03 K/uL (0.00-0.20); BASOPHILS % (AUTO) 0.4 % (0.0-2.0); EOSINOPHILS # (AUTO) 0.35 K/uL (0.00-0.70); EOSINOPHILS % (AUTO) 3.75 % (1.0-6.0); HEMATOCRIT 23.8 % (41-53); LYMPHOCYTES # (AUTO) 1.7 K/uL (1.0-4.8); LYMPHOCYTES % (AUTO) 18.7 % (22.0-44.0); MEAN CORPUSCULAR HEMOGLOBIN 31.7 pg (26.0-34.0); MEAN CORPUSCULAR HGB CONC 33.7 G/dL (31.0-37.0); MEAN CORPUSCULAR VOLUME 94 fL (80-100); MONOCYTES # (AUTO) 0.9 K/uL (0.1-1.0); MONOCYTES % (AUTO) 9.4 % (2.0-9.0); NEUTROPHILS # (AUTO) 6.3 K/uL (1.8-7.7); NEUTROPHILS % (AUTO) 67.8 % (40.0-70.0); PLATELET COUNT (AUTO) 226 K/uL (150-450); RED BLOOD CELL COUNT(AUTO) 2.54 MIL/uL (4.50-5.90); RED CELL DISTRIBUTION WIDTH 15.8 % (11.5-14.5); WHITE BLOOD COUNT (AUTO) 9.2 K/uL (4.5-11.0)
[2017-02-28] MEDS: INSULIN ASPART 100 UNITS/ML SQ PRN ×3 (06:45→17:15)
[2017-02-28 07:10] VITALS: BP 136/66
[2017-02-28 07:34] LABS: ALBUMIN 1.7 g/dL (3.4-5.0); BILIRUBIN,TOTAL 1.1 mg/dL (0.1-1.0); CALCIUM, TOTAL 9.3 mg/dL (8.8-10.5); CREATININE 6.61 mg/dL (0.60-1.30); POTASSIUM 4.2 mmol/L (3.5-5.1); TOTAL PROTEIN, SERUM 7.6 g/dL (6.4-8.2)
[2017-02-28] MEDS: CLOPIDOGREL BISULFATE 75 MG TABLET PO SCH (08:53)
[2017-02-28] MEDS: PANTOPRAZOLE SODIUM 40 MG/VIAL IVP SCH (08:53)
[2017-02-28] MEDS: ISOSORBIDE MONONITRATE 60 MG ER TABLET PO SCH (08:53)
[2017-02-28] MEDS: DOCUSATE SODIUM 100 MG CAPSULE PO SCH ×2 (08:53→20:33)
[2017-02-28] MEDS: CARVEDILOL 6.25 MG TABLET PO SCH ×2 (08:53→20:33)
[2017-02-28] MEDS: ALLOPURINOL 100 MG TABLET PO SCH (08:53)
[2017-02-28] MEDS: ASPIRIN 81 MG CHEWABLE TABLET PO SCH (08:53)
[2017-02-28] MEDS: EPOETIN ALFA 10,000 UNITS/ML VIAL SQ SCH (08:54)
[2017-02-28] MEDS: HYDROCORTISONE 2.5% 30 GM CREAM TP SCH (08:54)
[2017-02-28] MEDS: OXYGEN THERAPY IH SCH ×2 (08:54→21:30)
[2017-02-28] MEDS: -POST HEMODIALYSIS NOTE- MISC SCH (09:00)
[2017-02-28] MEDS: NITROGLYCERIN 2% (1 GM=INCH) PACKET TP SCH ×2 (10:04→16:27)
[2017-02-28 11:01] VITALS: BP 138/76
[2017-02-28 11:52] LABS: GLUCOSE COMMENT 1 Received Meds; GLUCOSE,POINT OF CARE 148 MG/DL (70-110)
[2017-02-28 14:58] VITALS: BP 132/78
[2017-02-28 19:43] VITALS: BP 151/78
[2017-02-28] MEDS: ATORVASTATIN CALCIUM 40 MG TABLET PO SCH (20:33)
[2017-02-28 21:27] LABS: GLUCOSE COMMENT 1 Received Meds; GLUCOSE,POINT OF CARE 191 MG/DL (70-110)
[2017-02-28] MEDS: INSULIN DETEMIR 100 UNITS/ML SQ SCH (21:32)
[2017-03-01] VITALS (7 sets, daily range): BP systolic 129–167; BP diastolic 68–80
[2017-03-01] MEDS: NITROGLYCERIN 2% (1 GM=INCH) PACKET TP SCH ×3 (00:01→17:53)
[2017-03-01] MEDS: ALBUTEROL SULFATE 2.5 MG/0.5 ML NEB SOLUTION NEB SCH ×6 (03:49→22:43)
[2017-03-01] MEDS: IPRATROPIUM BROMIDE 0.5 MG/2.5 ML NEB SOLUTION NEB SCH ×6 (03:49→22:43)
[2017-03-01 06:27] LABS: BASOPHILS % (AUTO) 0.6 % (0.0-2.0); EOSINOPHILS % (AUTO) 5.1 % (1.0-6.0); LYMPHOCYTES # (AUTO) 1.6 K/uL (1.0-4.8); LYMPHOCYTES % (AUTO) 16.1 % (22.0-44.0); MEAN CORPUSCULAR HEMOGLOBIN 32.2 pg (26.0-34.0); MEAN CORPUSCULAR HGB CONC 33.6 G/dL (31.0-37.0); MEAN CORPUSCULAR VOLUME 96 fL (80-100); MONOCYTES # (AUTO) 0.7 K/uL (0.1-1.0); MONOCYTES % (AUTO) 7.1 % (2.0-9.0); NEUTROPHILS # (AUTO) 7.3 K/uL (1.8-7.7); PLATELET COUNT (AUTO) 233 K/uL (150-450); RED BLOOD CELL COUNT(AUTO) 2.15 MIL/uL (4.50-5.90); RED CELL DISTRIBUTION WIDTH 16.1 % (11.5-14.5); WHITE BLOOD COUNT (AUTO) 10.2 K/uL (4.5-11.0)
[2017-03-01 06:57] LABS: ALBUMIN 1.8 g/dL (3.4-5.0); BILIRUBIN,TOTAL 1.2 mg/dL (0.1-1.0); CALCIUM, TOTAL 9.4 mg/dL (8.8-10.5); CREATININE 8.93 mg/dL (0.60-1.30); MAGNESIUM 2.2 mg/dL (1.80-2.40); POTASSIUM 4.6 mmol/L (3.5-5.1); TOTAL PROTEIN, SERUM 7.6 g/dL (6.4-8.2)
[2017-03-01 08:02] LABS: HEMATOCRIT 20.6 % (41-53)
[2017-03-01 08:04] LABS: NEUTROPHILS % (AUTO) 71.1 % (40.0-70.0)
[2017-03-01 08:05] LABS: HEMOGLOBIN 6.9 g/dL (13.5-17.5)
[2017-03-01 08:27] LABS: GLUCOSE,POINT OF CARE 182 MG/DL (70-110)
[2017-03-01 08:27] LABS: GLUCOSE COMMENT 1 Received Meds; GLUCOSE,POINT OF CARE 158 MG/DL (70-110)
[2017-03-01 08:31] LABS: GLUCOSE,POINT OF CARE 95 MG/DL (70-110)
[2017-03-01] MEDS: ASPIRIN 81 MG CHEWABLE TABLET PO SCH (08:32)
[2017-03-01] MEDS: DOCUSATE SODIUM 100 MG CAPSULE PO SCH ×2 (08:44→20:25)
[2017-03-01] MEDS: OXYGEN THERAPY IH SCH ×2 (09:01→19:18)
[2017-03-01] MEDS: CARVEDILOL 6.25 MG TABLET PO SCH ×2 (09:02→20:26)
[2017-03-01] MEDS: -POST HEMODIALYSIS NOTE- MISC SCH (09:02)
[2017-03-01] MEDS: HYDROCORTISONE 2.5% 30 GM CREAM TP SCH (09:02)
[2017-03-01] MEDS: PANTOPRAZOLE SODIUM 40 MG/VIAL IVP SCH (09:02)
[2017-03-01] MEDS: ALLOPURINOL 100 MG TABLET PO SCH (09:02)
[2017-03-01] MEDS: ISOSORBIDE MONONITRATE 60 MG ER TABLET PO SCH (09:02)
[2017-03-01] MEDS ORDERED: DiphenhydrAMINE HCL 50 MG/ML VIAL IVP ONE (12:00)
[2017-03-01] MEDS ORDERED: LIDOCAINE HCL/PF 1% 2 ML VIAL INJ ONE (12:00)
[2017-03-01] MEDS ORDERED: SODIUM CHLORIDE 0.9% 500 ML IV ONE ×2 (13:14→15:49)
[2017-03-01] MEDS ORDERED: ALBUMIN HUMAN 25%-12.5GM/50ML IV BOTTLE IV PRN (15:15)
[2017-03-01] MEDS ORDERED: MANNITOL 25%-12.5 GM/50 ML VIAL IVP PRN (15:15)
[2017-03-01] MEDS ORDERED: LIDOCAINE HCL/PF 1% 2 ML VIAL ID PRN (15:15)
[2017-03-01] MEDS: CLOPIDOGREL BISULFATE 75 MG TABLET PO SCH (17:54)
[2017-03-01 18:32] LABS: GLUCOSE,POINT OF CARE 145 MG/DL (70-110)
[2017-03-01 18:32] LABS: GLUCOSE,POINT OF CARE 160 MG/DL (70-110)
[2017-03-01] MEDS: ATORVASTATIN CALCIUM 40 MG TABLET PO SCH (20:26)
[2017-03-01 21:18] LABS: GLUCOSE COMMENT 1 Received Meds; GLUCOSE,POINT OF CARE 188 MG/DL (70-110)
[2017-03-01] MEDS: INSULIN DETEMIR 100 UNITS/ML SQ SCH (21:19)
[2017-03-02] MEDS: IPRATROPIUM BROMIDE 0.5 MG/2.5 ML NEB SOLUTION NEB SCH ×6 (02:35→23:31)
[2017-03-02] MEDS: ALBUTEROL SULFATE 2.5 MG/0.5 ML NEB SOLUTION NEB SCH ×6 (02:35→23:31)
[2017-03-02 04:33] VITALS: BP 166/79
[2017-03-02] MEDS: OXYGEN THERAPY IH SCH ×2 (06:58→20:48)
[2017-03-02 07:16] VITALS: BP 159/74
[2017-03-02 07:40] LABS: CREATININE 6.32 mg/dL (0.60-1.30); POTASSIUM 4.2 mmol/L (3.5-5.1)
[2017-03-02 07:41] LABS: ALBUMIN 1.8 g/dL (3.4-5.0); BILIRUBIN,TOTAL 1.2 mg/dL (0.1-1.0); CALCIUM, TOTAL 9.2 mg/dL (8.8-10.5); TOTAL PROTEIN, SERUM 7.6 g/dL (6.4-8.2)
[2017-03-02 07:43] LABS: BASOPHILS % (AUTO) 0.3 % (0.0-2.0); EOSINOPHILS % (AUTO) 5.2 % (1.0-6.0); HEMATOCRIT 27.2 % (41-53); HEMOGLOBIN 9.1 g/dL (13.5-17.5); LYMPHOCYTES # (AUTO) 1.4 K/uL (1.0-4.8); LYMPHOCYTES % (AUTO) 15.7 % (22.0-44.0); MEAN CORPUSCULAR HEMOGLOBIN 31.3 pg (26.0-34.0); MEAN CORPUSCULAR HGB CONC 33.5 G/dL (31.0-37.0); MEAN CORPUSCULAR VOLUME 93 fL (80-100); MONOCYTES # (AUTO) 0.7 K/uL (0.1-1.0); MONOCYTES % (AUTO) 7.9 % (2.0-9.0); NEUTROPHILS # (AUTO) 6.5 K/uL (1.8-7.7); NEUTROPHILS % (AUTO) 70.9 % (40.0-70.0); PLATELET COUNT (AUTO) 212 K/uL (150-450); RED BLOOD CELL COUNT(AUTO) 2.91 MIL/uL (4.50-5.90); RED CELL DISTRIBUTION WIDTH 17.6 % (11.5-14.5); WHITE BLOOD COUNT (AUTO) 9.2 K/uL (4.5-11.0)
[2017-03-02] MEDS: CARVEDILOL 6.25 MG TABLET PO SCH ×2 (08:28→20:46)
[2017-03-02] MEDS: ASPIRIN 81 MG CHEWABLE TABLET PO SCH (08:28)
[2017-03-02] MEDS: CLOPIDOGREL BISULFATE 75 MG TABLET PO SCH (08:28)
[2017-03-02] MEDS: PANTOPRAZOLE SODIUM 40 MG/VIAL IVP SCH (08:28)
[2017-03-02] MEDS: NITROGLYCERIN 2% (1 GM=INCH) PACKET TP SCH ×3 (08:28→16:06)
[2017-03-02] MEDS: DOCUSATE SODIUM 100 MG CAPSULE PO SCH ×2 (08:28→20:46)
[2017-03-02] MEDS: ISOSORBIDE MONONITRATE 60 MG ER TABLET PO SCH (08:29)
[2017-03-02] MEDS: ALLOPURINOL 100 MG TABLET PO SCH (08:29)
[2017-03-02] MEDS: HYDROCORTISONE 2.5% 30 GM CREAM TP SCH (08:31)
[2017-03-02 08:57] LABS: GLUCOSE,POINT OF CARE 79 MG/DL (70-110)
[2017-03-02] MEDS: -POST HEMODIALYSIS NOTE- MISC SCH (09:00)
[2017-03-02 11:05] VITALS: BP 164/88
[2017-03-02 11:12] LABS: GLUCOSE COMMENT 1 Received Meds; GLUCOSE,POINT OF CARE 141 MG/DL (70-110)
[2017-03-02] MEDS: INSULIN ASPART 100 UNITS/ML SQ PRN ×3 (12:40→20:48)
[2017-03-02 15:17] VITALS: BP 160/76
[2017-03-02 18:17] LABS: GLUCOSE COMMENT 1 Received Meds; GLUCOSE,POINT OF CARE 176 MG/DL (70-110)
[2017-03-02 20:08] VITALS: BP 153/76
[2017-03-02] MEDS: ATORVASTATIN CALCIUM 40 MG TABLET PO SCH (20:46)
[2017-03-02] MEDS: INSULIN DETEMIR 100 UNITS/ML SQ SCH (20:47)
[2017-03-02 21:47] LABS: GLUCOSE COMMENT 1 Received Meds; GLUCOSE,POINT OF CARE 143 MG/DL (70-110)
[2017-03-03 00:09] VITALS: BP 159/86
[2017-03-03] MEDS: NITROGLYCERIN 2% (1 GM=INCH) PACKET TP SCH ×4 (00:24→23:48)
[2017-03-03] MEDS: ALBUTEROL SULFATE 2.5 MG/0.5 ML NEB SOLUTION NEB SCH ×7 (02:30→22:59)
[2017-03-03] MEDS: IPRATROPIUM BROMIDE 0.5 MG/2.5 ML NEB SOLUTION NEB SCH ×7 (02:30→22:59)
[2017-03-03 05:20] VITALS: BP 162/59
[2017-03-03] MEDS ORDERED: 0.9% SODIUM CHLORIDE 5 ML NEB SOLUTION NEB ONE (05:25)
[2017-03-03 06:47] LABS: GLUCOSE,POINT OF CARE 83 MG/DL (70-110)
[2017-03-03 06:54] LABS: BASOPHILS % (AUTO) 0.4 % (0.0-2.0); EOSINOPHILS % (AUTO) 4.3 % (1.0-6.0); HEMATOCRIT 27.8 % (41-53); HEMOGLOBIN 9.5 g/dL (13.5-17.5); LYMPHOCYTES # (AUTO) 1.3 K/uL (1.0-4.8); LYMPHOCYTES % (AUTO) 11.3 % (22.0-44.0); MEAN CORPUSCULAR HEMOGLOBIN 31.8 pg (26.0-34.0); MEAN CORPUSCULAR HGB CONC 34.1 G/dL (31.0-37.0); MEAN CORPUSCULAR VOLUME 93 fL (80-100); MONOCYTES # (AUTO) 0.8 K/uL (0.1-1.0); NEUTROPHILS # (AUTO) 8.6 K/uL (1.8-7.7); PLATELET COUNT (AUTO) 234 K/uL (150-450); RED BLOOD CELL COUNT(AUTO) 2.97 MIL/uL (4.50-5.90); RED CELL DISTRIBUTION WIDTH 17.1 % (11.5-14.5); WHITE BLOOD COUNT (AUTO) 11.2 K/uL (4.5-11.0)
[2017-03-03 07:02] LABS: RBC MORPHOLOGY COMMENT ABNORMAL RBC MORPH
[2017-03-03 07:24] VITALS: BP 145/71
[2017-03-03] MEDS: OXYGEN THERAPY IH SCH ×2 (07:37→21:12)
[2017-03-03 07:41] LABS: ALBUMIN 1.9 g/dL (3.4-5.0); BILIRUBIN,TOTAL 1.2 mg/dL (0.1-1.0); CALCIUM, TOTAL 9.6 mg/dL (8.8-10.5); CREATININE 8.17 mg/dL (0.60-1.30); MAGNESIUM 2.3 mg/dL (1.80-2.40); POTASSIUM 4.9 mmol/L (3.5-5.1); TOTAL PROTEIN, SERUM 8.4 g/dL (6.4-8.2)
[2017-03-03] MEDS: DOCUSATE SODIUM 100 MG CAPSULE PO SCH ×2 (08:33→21:12)
[2017-03-03] MEDS: ISOSORBIDE MONONITRATE 60 MG ER TABLET PO SCH (08:33)
[2017-03-03] MEDS: ALLOPURINOL 100 MG TABLET PO SCH (08:33)
[2017-03-03] MEDS: PANTOPRAZOLE SODIUM 40 MG/VIAL IVP SCH (08:35)
[2017-03-03] MEDS: CLOPIDOGREL BISULFATE 75 MG TABLET PO SCH (09:00)
[2017-03-03] MEDS: ASPIRIN 81 MG CHEWABLE TABLET PO SCH (09:00)
[2017-03-03] MEDS: CARVEDILOL 6.25 MG TABLET PO SCH ×2 (09:00→21:12)
[2017-03-03] MEDS: EPOETIN ALFA 10,000 UNITS/ML VIAL SQ SCH (10:27)
[2017-03-03] MEDS: HYDROCORTISONE 2.5% 30 GM CREAM TP SCH (10:29)
[2017-03-03 11:22] VITALS: BP 159/72
[2017-03-03] MEDS: -POST HEMODIALYSIS NOTE- MISC SCH (12:30)
[2017-03-03] MEDS ORDERED: LIDOCAINE HCL/PF 1% 2 ML VIAL ID PRN (13:00)
[2017-03-03] MEDS ORDERED: ALBUMIN HUMAN 25%-12.5GM/50ML IV BOTTLE IV PRN (13:00)
[2017-03-03] MEDS ORDERED: MANNITOL 25%-12.5 GM/50 ML VIAL IVP PRN (13:00)
[2017-03-03] MEDS: CeFAZolin 2 GM/DEXTROSE 50 ML IV PRN (16:33)
[2017-03-03 19:29] VITALS: BP 157/81
[2017-03-03] MEDS: ATORVASTATIN CALCIUM 40 MG TABLET PO SCH (21:12)
[2017-03-03] MEDS: INSULIN ASPART 100 UNITS/ML SQ PRN (21:19)
[2017-03-03] MEDS: INSULIN DETEMIR 100 UNITS/ML SQ SCH (21:20)
[2017-03-04 00:03] VITALS: BP 157/71
[2017-03-04 02:07] LABS: GLUCOSE,POINT OF CARE 119 MG/DL (70-110)
[2017-03-04 02:07] LABS: GLUCOSE COMMENT 1 Received Meds; GLUCOSE,POINT OF CARE 206 MG/DL (70-110)
[2017-03-04 02:11] LABS: GLUCOSE,POINT OF CARE 99 MG/DL (70-110)
[2017-03-04] MEDS: ALBUTEROL SULFATE 2.5 MG/0.5 ML NEB SOLUTION NEB SCH ×5 (02:41→19:29)
[2017-03-04] MEDS: IPRATROPIUM BROMIDE 0.5 MG/2.5 ML NEB SOLUTION NEB SCH ×5 (02:41→19:29)
[2017-03-04 04:49] VITALS: BP 154/76
[2017-03-04] MEDS: OXYGEN THERAPY IH SCH ×2 (07:04→20:21)
[2017-03-04 07:12] LABS: BASOPHILS % (AUTO) 0.3 % (0.0-2.0); HEMATOCRIT 27.5 % (41-53); HEMOGLOBIN 9.3 g/dL (13.5-17.5); LYMPHOCYTES # (AUTO) 1.1 K/uL (1.0-4.8); LYMPHOCYTES % (AUTO) 14.8 % (22.0-44.0); MEAN CORPUSCULAR HEMOGLOBIN 31.7 pg (26.0-34.0); MEAN CORPUSCULAR HGB CONC 33.9 G/dL (31.0-37.0); MEAN CORPUSCULAR VOLUME 94 fL (80-100); MONOCYTES # (AUTO) 0.7 K/uL (0.1-1.0); MONOCYTES % (AUTO) 10.3 % (2.0-9.0); NEUTROPHILS # (AUTO) 4.9 K/uL (1.8-7.7); NEUTROPHILS % (AUTO) 68.6 % (40.0-70.0); PLATELET COUNT (AUTO) 225 K/uL (150-450); RED BLOOD CELL COUNT(AUTO) 2.93 MIL/uL (4.50-5.90); RED CELL DISTRIBUTION WIDTH 17.6 % (11.5-14.5); WHITE BLOOD COUNT (AUTO) 7.2 K/uL (4.5-11.0)
[2017-03-04 07:17] LABS: CALCIUM, TOTAL 9.5 mg/dL (8.8-10.5); CREATININE 6.14 mg/dL (0.60-1.30); POTASSIUM 4.3 mmol/L (3.5-5.1)
[2017-03-04 07:25] VITALS: BP 134/66
[2017-03-04] MEDS: NITROGLYCERIN 2% (1 GM=INCH) PACKET TP SCH ×2 (08:00→16:08)
[2017-03-04] MEDS: PANTOPRAZOLE SODIUM 40 MG/VIAL IVP SCH (08:18)
[2017-03-04 08:37] LABS: GLUCOSE,POINT OF CARE 92 MG/DL (70-110)
[2017-03-04] MEDS: -POST HEMODIALYSIS NOTE- MISC SCH (09:00)
[2017-03-04] MEDS: HYDROCORTISONE 2.5% 30 GM CREAM TP SCH (09:00)
[2017-03-04] MEDS: ASPIRIN 81 MG CHEWABLE TABLET PO SCH (11:21)
[2017-03-04] MEDS: CLOPIDOGREL BISULFATE 75 MG TABLET PO SCH (11:21)
[2017-03-04] MEDS: ISOSORBIDE MONONITRATE 60 MG ER TABLET PO SCH (11:21)
[2017-03-04] MEDS: CARVEDILOL 6.25 MG TABLET PO SCH ×2 (11:21→20:21)
[2017-03-04] MEDS: ALLOPURINOL 100 MG TABLET PO SCH (11:21)
[2017-03-04] MEDS: DOCUSATE SODIUM 100 MG CAPSULE PO SCH ×2 (11:21→20:21)
[2017-03-04 11:46] LABS: RBC MORPHOLOGY COMMENT ABNORMAL RBC MORPH
[2017-03-04 11:50] VITALS: BP 152/72
[2017-03-04] MEDS: INSULIN ASPART 100 UNITS/ML SQ PRN ×2 (12:37→20:34)
[2017-03-04 15:12] VITALS: BP 145/77
[2017-03-04 17:41] LABS: GLUCOSE,POINT OF CARE 209 MG/DL (70-110)
[2017-03-04 17:41] LABS: GLUCOSE,POINT OF CARE 103 MG/DL (70-110)
[2017-03-04 19:40] VITALS: BP 150/75
[2017-03-04] MEDS: ATORVASTATIN CALCIUM 40 MG TABLET PO SCH (20:21)
[2017-03-04] MEDS: INSULIN DETEMIR 100 UNITS/ML SQ SCH (20:34)
[2017-03-05] MEDS: NITROGLYCERIN 2% (1 GM=INCH) PACKET TP SCH ×4 (00:01→16:00)
[2017-03-05 00:02] VITALS: BP 152/77
[2017-03-05] MEDS: IPRATROPIUM BROMIDE 0.5 MG/2.5 ML NEB SOLUTION NEB SCH ×7 (00:06→22:40)
[2017-03-05] MEDS: ALBUTEROL SULFATE 2.5 MG/0.5 ML NEB SOLUTION NEB SCH ×7 (00:06→22:40)
[2017-03-05 05:28] VITALS: BP 155/74
[2017-03-05] MEDS: DEXTROSE 50%-WATER 25 GM/50 ML SYRINGE IVP PRN (06:08)
[2017-03-05 06:16] LABS: BASOPHILS % (AUTO) 0.4 % (0.0-2.0); EOSINOPHILS % (AUTO) 7.4 % (1.0-6.0); HEMATOCRIT 26.3 % (41-53); HEMOGLOBIN 9.1 g/dL (13.5-17.5); LYMPHOCYTES # (AUTO) 1.7 K/uL (1.0-4.8); LYMPHOCYTES % (AUTO) 20.3 % (22.0-44.0); MEAN CORPUSCULAR HEMOGLOBIN 32.3 pg (26.0-34.0); MEAN CORPUSCULAR HGB CONC 34.5 G/dL (31.0-37.0); MEAN CORPUSCULAR VOLUME 94 fL (80-100); MONOCYTES % (AUTO) 11.9 % (2.0-9.0); NEUTROPHILS # (AUTO) 5.1 K/uL (1.8-7.7); PLATELET COUNT (AUTO) 230 K/uL (150-450); RED BLOOD CELL COUNT(AUTO) 2.81 MIL/uL (4.50-5.90); RED CELL DISTRIBUTION WIDTH 17.4 % (11.5-14.5); WHITE BLOOD COUNT (AUTO) 8.6 K/uL (4.5-11.0)
[2017-03-05 06:36] LABS: ALBUMIN 1.8 g/dL (3.4-5.0); CALCIUM, TOTAL 9.3 mg/dL (8.8-10.5); CREATININE 7.59 mg/dL (0.60-1.30); MAGNESIUM 2.2 mg/dL (1.80-2.40); POTASSIUM 4.6 mmol/L (3.5-5.1); TOTAL PROTEIN, SERUM 7.8 g/dL (6.4-8.2)
[2017-03-05 06:59] LABS: RBC MORPHOLOGY COMMENT ABNORMAL RBC MORPH
[2017-03-05 07:20] VITALS: BP 137/70
[2017-03-05] MEDS: CARVEDILOL 6.25 MG TABLET PO SCH ×2 (08:02→20:24)
[2017-03-05] MEDS: ISOSORBIDE MONONITRATE 60 MG ER TABLET PO SCH (08:02)
[2017-03-05] MEDS: DOCUSATE SODIUM 100 MG CAPSULE PO SCH ×2 (08:06→20:24)
[2017-03-05] MEDS: ALLOPURINOL 100 MG TABLET PO SCH (08:06)
[2017-03-05] MEDS: ASPIRIN 81 MG CHEWABLE TABLET PO SCH (08:06)
[2017-03-05] MEDS: CLOPIDOGREL BISULFATE 75 MG TABLET PO SCH (08:06)
[2017-03-05] MEDS: EPOETIN ALFA 10,000 UNITS/ML VIAL SQ SCH (08:06)
[2017-03-05] MEDS: PANTOPRAZOLE SODIUM 40 MG/VIAL IVP SCH (08:06)
[2017-03-05] MEDS: OXYGEN THERAPY IH SCH ×2 (08:07→20:38)
[2017-03-05] MEDS: HYDROCORTISONE 2.5% 30 GM CREAM TP SCH (08:34)
[2017-03-05] MEDS ORDERED: SODIUM CHLORIDE 0.9% 2,000 ML IV ONE (08:39)
[2017-03-05] MEDS: -POST HEMODIALYSIS NOTE- MISC SCH (09:00)
[2017-03-05 11:21] VITALS: BP 141/72
[2017-03-05] MEDS: INSULIN ASPART 100 UNITS/ML SQ PRN ×2 (12:26→20:36)
[2017-03-05] MEDS: CeFAZolin 2 GM/DEXTROSE 50 ML IV PRN (14:35)
[2017-03-05] MEDS ORDERED: LIDOCAINE HCL/PF 1% 2 ML VIAL IM ONE (17:05)
[2017-03-05 19:26] VITALS: BP 158/77
[2017-03-05] MEDS: ATORVASTATIN CALCIUM 40 MG TABLET PO SCH (20:24)
[2017-03-05] MEDS: INSULIN DETEMIR 100 UNITS/ML SQ SCH (20:34)
[2017-03-06 00:15] VITALS: BP 142/70
[2017-03-06] MEDS: NITROGLYCERIN 2% (1 GM=INCH) PACKET TP SCH ×3 (00:20→16:16)
[2017-03-06 01:37] LABS: GLUCOSE COMMENT 1 Received Meds; GLUCOSE,POINT OF CARE 194 MG/DL (70-110)
[2017-03-06 01:46] LABS: GLUCOSE COMMENT 1 Received Meds; GLUCOSE,POINT OF CARE 182 MG/DL (70-110)
[2017-03-06] MEDS: IPRATROPIUM BROMIDE 0.5 MG/2.5 ML NEB SOLUTION NEB SCH ×4 (02:49→15:14)
[2017-03-06] MEDS: ALBUTEROL SULFATE 2.5 MG/0.5 ML NEB SOLUTION NEB SCH ×4 (02:50→15:14)
[2017-03-06 04:22] VITALS: BP 147/73
[2017-03-06 06:07] LABS: BASOPHILS % (AUTO) 0.6 % (0.0-2.0); EOSINOPHILS % (AUTO) 9.1 % (1.0-6.0); HEMATOCRIT 27.1 % (41-53); HEMOGLOBIN 9.1 g/dL (13.5-17.5); LYMPHOCYTES # (AUTO) 1.2 K/uL (1.0-4.8); LYMPHOCYTES % (AUTO) 17.9 % (22.0-44.0); MEAN CORPUSCULAR HEMOGLOBIN 31.7 pg (26.0-34.0); MEAN CORPUSCULAR HGB CONC 33.5 G/dL (31.0-37.0); MEAN CORPUSCULAR VOLUME 95 fL (80-100); MONOCYTES # (AUTO) 0.8 K/uL (0.1-1.0); MONOCYTES % (AUTO) 11.6 % (2.0-9.0); NEUTROPHILS # (AUTO) 4.1 K/uL (1.8-7.7); NEUTROPHILS % (AUTO) 60.8 % (40.0-70.0); PLATELET COUNT (AUTO) 217 K/uL (150-450); RED BLOOD CELL COUNT(AUTO) 2.86 MIL/uL (4.50-5.90); RED CELL DISTRIBUTION WIDTH 17.7 % (11.5-14.5); WHITE BLOOD COUNT (AUTO) 6.8 K/uL (4.5-11.0)
[2017-03-06 07:29] LABS: ALBUMIN 1.9 g/dL (3.4-5.0); BILIRUBIN,TOTAL 0.9 mg/dL (0.1-1.0); CALCIUM, TOTAL 8.9 mg/dL (8.8-10.5); CREATININE 5.92 mg/dL (0.60-1.30); POTASSIUM 4.8 mmol/L (3.5-5.1); TOTAL PROTEIN, SERUM 7.2 g/dL (6.4-8.2)
[2017-03-06 07:36] VITALS: BP 138/68
[2017-03-06] MEDS: OXYGEN THERAPY IH SCH (07:37)
[2017-03-06 07:51] LABS: RBC MORPHOLOGY COMMENT ABNORMAL RBC MORPH
[2017-03-06] MEDS: PANTOPRAZOLE SODIUM 40 MG/VIAL IVP SCH (08:52)
[2017-03-06] MEDS: DOCUSATE SODIUM 100 MG CAPSULE PO SCH (08:52)
[2017-03-06] MEDS: CLOPIDOGREL BISULFATE 75 MG TABLET PO SCH (08:52)
[2017-03-06] MEDS: CARVEDILOL 6.25 MG TABLET PO SCH (08:52)
[2017-03-06] MEDS: ASPIRIN 81 MG CHEWABLE TABLET PO SCH (08:53)
[2017-03-06] MEDS: ALLOPURINOL 100 MG TABLET PO SCH (08:54)
[2017-03-06] MEDS: ISOSORBIDE MONONITRATE 60 MG ER TABLET PO SCH (08:54)
[2017-03-06] MEDS: -POST HEMODIALYSIS NOTE- MISC SCH (09:00)
[2017-03-06] MEDS: HYDROCORTISONE 2.5% 30 GM CREAM TP SCH (09:14)
[2017-03-06 11:34] VITALS: BP 142/68
[2017-03-06] MEDS: INSULIN ASPART 100 UNITS/ML SQ PRN (12:10)
[2017-03-06 15:13] VITALS: BP 158/79
[2017-03-07 06:33] LABS: GLUCOSE,POINT OF CARE 82 MG/DL (70-110)
[2017-03-13 14:43] LABS: GLUCOSE,POINT OF CARE 92 MG/DL (70-110)
[2017-03-13 14:43] LABS: GLUCOSE COMMENT 1 Juice/Food/D50 Given; GLUCOSE,POINT OF CARE 58 MG/DL (70-110)
[2017-03-13 14:43] LABS: GLUCOSE,POINT OF CARE 143 MG/DL (70-110)
[2017-03-13 14:43] LABS: GLUCOSE,POINT OF CARE 151 MG/DL (70-110)
[2017-03-13 14:43] LABS: GLUCOSE,POINT OF CARE 140 MG/DL (70-110)
[2017-03-13 14:43] LABS: GLUCOSE COMMENT 1 Received Meds; GLUCOSE,POINT OF CARE 150 MG/DL (70-110)
== END 2017-03-06 18:30 | DRG 280 ==
LOC: EMS 14:32 → ICU 19:56 → 5S 02-17 15:27
PROVIDERS: ADMIT Hospitalist; ATTEND Hospitalist
PROC: 5A1D60Z (ICD-10-PCS; principal; 2017-02-20)
PROC: 4A023N7 Measurement of Cardiac Sampling and Pressure, Left Heart, Percutaneous Approach (ICD-10-PCS; 2017-02-25)
PROC: B2111ZZ Fluoroscopy of Multiple Coronary Arteries using Low Osmolar Contrast (ICD-10-PCS; 2017-02-25)
PROC: B2151ZZ Fluoroscopy of Left Heart using Low Osmolar Contrast (ICD-10-PCS; 2017-02-25)
PROC: B2181ZZ Fluoroscopy of Left Internal Mammary Bypass Graft using Low Osmolar Contrast (ICD-10-PCS; 2017-02-25)
PROC: B2121ZZ Fluoroscopy of Single Coronary Artery Bypass Graft using Low Osmolar Contrast (ICD-10-PCS; 2017-02-25)
PROC: 0R9K3ZX Drainage of Left Shoulder Joint, Percutaneous Approach, Diagnostic (ICD-10-PCS; 2017-02-26)
PROC: 30233N1 Transfusion of Nonautologous Red Blood Cells into Peripheral Vein, Percutaneous Approach (ICD-10-PCS; 2017-03-01)
PROC: 5A09357 Assistance with Respiratory Ventilation, Less than 24 Consecutive Hours, Continuous Positive Airway Pressure (ICD-10-PCS; 2017-03-03)
DX: T82.897A Other specified complication of cardiac prosthetic devices, implants and grafts, initial encounter (principal); A41.01 Sepsis due to Methicillin susceptible Staphylococcus aureus; I21.4 Non-ST elevation (NSTEMI) myocardial infarction; N18.6 End stage renal disease; G93.40 Encephalopathy, unspecified; I50.21 Acute systolic (congestive) heart failure; I13.2 Hypertensive heart and chronic kidney disease with heart failure and with stage 5 chronic kidney disease, or end stage renal disease; M00.9 Pyogenic arthritis, unspecified; Y92.89 Other specified places as the place of occurrence of the external cause; Y83.8 Other surgical procedures as the cause of abnormal reaction of the patient, or of later complication, without mention of misadventure at the time of the procedure; D64.9 Anemia, unspecified; I25.10 Atherosclerotic heart disease of native coronary artery without angina pectoris; E11.22 Type 2 diabetes mellitus with diabetic chronic kidney disease; E78.5 Hyperlipidemia, unspecified; M10.9 Gout, unspecified; E11.51 Type 2 diabetes mellitus with diabetic peripheral angiopathy without gangrene; B96.89 Other specified bacterial agents as the cause of diseases classified elsewhere; E87.5 Hyperkalemia; I70.0 Atherosclerosis of aorta; K64.9 Unspecified hemorrhoids; M75.92 Shoulder lesion, unspecified, left shoulder; Z82.49 Family history of ischemic heart disease and other diseases of the circulatory system; Z99.2 Dependence on renal dialysis; I25.2 Old myocardial infarction; Z79.82 Long term (current) use of aspirin; Z87.891 Personal history of nicotine dependence; Z95.1 Presence of aortocoronary bypass graft; Z79.2 Long term (current) use of antibiotics; Z79.899 Other long term (current) drug therapy; M77.9 Enthesopathy, unspecified; X58.XXXA Exposure to other specified factors, initial encounter; Y93.89 Activity, other specified; Y99.8 Other external cause status
CPT/HCPCS: 70450; 73221; 74176; 76705; 78806; 82962; 83735; 83993; 84100; 84145; 85651; 86140; 86850; 86900; 86901; 86920; 87040; 87045; 87070; 87081; 87205; 87340; 89051; 89060; 90935; 93005; 93306; 93312; 93459; 93567; 93990; 94640; 94660; 96374; 96375; 96376; 97110; 97116; 97530; 99244; 99291; A9547; C9113; J0295; J0360; J0456; J0690; J0696; J0885; J1200; J1644; J2250; J2270; J2405; J3010; J3370; J3490; J7030; J7040; J7050; J7060; P9016; P9047; Q9965; Q9967

== ENCOUNTER 2017-09-12 14:37 | Inpatient (IN) | payer MEDICARE, OTHER ==
[~2017-09-12] VITALS: Ht 162.6 cm; Wt 61.9 kg
[~2017-09-12 14:37] MED LIST changes: -ACET-2902 PO; -ASPI-1093 PO; +ASPI-1182 PO; -HYDR-2924 PO; -INSLAN SQ; +INSU100V12 SQ; +ISOS60TA4 PO; +LOSA25TA21 PO; +METO50 PO; +SEVEC800 PO
[2017-09-12 15:28] LABS: GLUCOSE,POINT OF CARE 98 MG/DL (70-110)
[2017-09-12] MEDS ORDERED: PANT40TA25 PO (15:29)
[2017-09-12] MEDS ORDERED: LOSA25TA21 PO (15:29)
[2017-09-12] MEDS ORDERED: NITR.4P TD (15:29)
[2017-09-12] MEDS ORDERED: GUAI100S13 PO (15:29)
[2017-09-12] MEDS ORDERED: CIPR-278 PO (15:29)
[2017-09-12] MEDS ORDERED: AMOX500T2 PO (15:29)
[2017-09-12] MEDS ORDERED: INSU100C14 SQ (15:29)
[2017-09-12] MEDS ORDERED: DSS100 PO (15:29)
[2017-09-12] MEDS ORDERED: INSLAN SQ (15:29)
[2017-09-12] MEDS ORDERED: CARV6 PO (15:29)
[2017-09-12] MEDS ORDERED: HYDR-2924 PO (15:29)
[2017-09-12] MEDS ORDERED: CLIN300C3 PO (15:29)
[2017-09-12 15:51] LABS: BASOPHILS % (AUTO) 1.1 % (0.0-2.0); EOSINOPHILS % (AUTO) 5.7 % (1.0-6.0); HEMATOCRIT 34.1 % (41-53); HEMOGLOBIN 11.2 g/dL (13.5-17.5); LYMPHOCYTES # (AUTO) 2.2 K/uL (1.0-4.8); LYMPHOCYTES % (AUTO) 29.6 % (22.0-44.0); MEAN CORPUSCULAR HGB CONC 32.7 G/dL (31.0-37.0); MEAN CORPUSCULAR VOLUME 107 fL (80-100); MONOCYTES # (AUTO) 0.6 K/uL (0.1-1.0); MONOCYTES % (AUTO) 8.1 % (2.0-9.0); NEUTROPHILS # (AUTO) 4.2 K/uL (1.8-7.7); NEUTROPHILS % (AUTO) 55.5 % (40.0-70.0); PLATELET COUNT (AUTO) 125 K/uL (150-450); RED BLOOD CELL COUNT(AUTO) 3.19 MIL/uL (4.50-5.90); RED CELL DISTRIBUTION WIDTH 17.2 % (11.5-14.5); WHITE BLOOD COUNT (AUTO) 7.5 K/uL (4.5-11.0)
[2017-09-12 16:22] LABS: B-TYPE NATRIURETIC PEPTIDE > 5000 pg/mL (0-100)
[2017-09-12 16:27] LABS: ANION GAP 7 mmol/L (8-16); CALCIUM, TOTAL 9.9 mg/dL (8.8-10.5); CARBON DIOXIDE 33 mmol/L (22-29); CHLORIDE 98 mmol/L (98-107); CREATININE 5.17 mg/dL (0.60-1.30); GLOMERULAR FILTR. RATE CALC 11 mL/min (>60); POTASSIUM 5.2 mmol/L (3.5-5.1); SODIUM SERUM 138 mmol/L (136-145); UREA NITROGEN, BLOOD 46 mg/dL (7-18)
[2017-09-12 16:33] LABS: ALANINE AMINOTRANSFERASE 30 U/L (12-78); ALBUMIN 3.1 g/dL (3.4-5.0); ASPARTATE AMINOTRANSFERASE 28 U/L (15-37); BILIRUBIN,TOTAL 1.4 mg/dL (0.1-1.0); CREATINE KINASE, TOTAL 37 U/L (39-308)
[2017-09-12 17:20] LABS: RBC MORPHOLOGY COMMENT ABNORMAL RBC MORPH
[2017-09-12] MEDS ORDERED: BUMETANIDE 0.25 MG/ML 4 ML VIAL IVP ONE (18:30)
[2017-09-12 22:10] VITALS: BP 159/71
[2017-09-12] MEDS ORDERED: ZOLPIDEM TARTRATE 5 MG TABLET PO PRN (23:45)
[2017-09-12] MEDS ORDERED: DEXTROSE 50%-WATER 25 GM/50 ML SYRINGE IVP PRN (23:45)
[2017-09-12] MEDS ORDERED: MORPHINE SULFATE 2 MG/ML SYRINGE IVP PRN (23:45)
[2017-09-12] MEDS ORDERED: IPRATROPIUM BROMIDE 0.5 MG/2.5 ML NEB SOLUTION NEB PRN (23:45)
[2017-09-12] MEDS ORDERED: HYDROCODONE/ACETAMINOPHEN 5-325 MG TABLET PO PRN (23:45)
[2017-09-12] MEDS ORDERED: BISACODYL 10 MG RECTAL RECTAL SUPPOSITORY PR PRN (23:45)
[2017-09-12] MEDS ORDERED: ALBUTEROL SULFATE 2.5 MG/0.5 ML NEB SOLUTION NEB PRN (23:45)
[2017-09-12] MEDS ORDERED: ONDANSETRON HCL 4 MG/2 ML VIAL IVP PRN (23:45)
[2017-09-12] MEDS ORDERED: GuaiFENesin [SUGAR-FREE] 200 MG/10 ML SOLUTION UDCUP PO PRN (23:45)
[2017-09-12] MEDS ORDERED: ACETAMINOPHEN 325 MG TABLET PO PRN (23:45)
[2017-09-13] VITALS (7 sets, daily range): BP systolic 127–150; BP diastolic 57–75
[2017-09-13] MEDS: HEPARIN SODIUM,PORCINE 5,000 UNITS/ML VIAL SQ SCH ×2 (00:54→10:20)
[2017-09-13] MEDS ORDERED: DOXERCALCIFEROL 4 MCG/2 ML AMP IVP PRN (08:15)
[2017-09-13 08:31] LABS: CALCIUM, TOTAL 10.1 mg/dL (8.8-10.5); CREATININE 6.26 mg/dL (0.60-1.30); POTASSIUM 5.4 mmol/L (3.5-5.1)
[2017-09-13] MEDS ORDERED: INSULIN GLARGINE,HUM.REC.ANLOG 100 UNITS/ML SQ SCH ×2 (09:00)
[2017-09-13] MEDS ORDERED: FUROSEMIDE 40 MG/4 ML VIAL IVP SCH (09:00)
[2017-09-13] MEDS ORDERED: NITROGLYCERIN 0.4 MG/HOUR PATCH TD SCH (09:00)
[2017-09-13] MEDS: HydrALAZINE HCL 50 MG TABLET PO SCH ×3 (09:00→21:21)
[2017-09-13] MEDS ORDERED: DOCUSATE SODIUM 100 MG CAPSULE PO SCH (09:00)
[2017-09-13] MEDS: -PHARMACY NOTE- MISC SCH ×2 (10:04)
[2017-09-13] MEDS: DOCUSATE SODIUM 100 MG CAPSULE PO SCH ×2 (10:20→21:20)
[2017-09-13] MEDS: PANTOPRAZOLE SODIUM 40 MG DR TABLET PO SCH (10:21)
[2017-09-13] MEDS: NITROGLYCERIN 0.4 MG/HOUR PATCH TD SCH (10:21)
[2017-09-13] MEDS: EPOETIN ALFA 10,000 UNITS/ML VIAL SQ SCH (10:21)
[2017-09-13] MEDS ORDERED: HEPARIN SODIUM 1000 UNITS/NS 500 ML IV SCH (10:30)
[2017-09-13] MEDS ORDERED: LORazepam 2 MG/ML VIAL ONE ×2 (13:28→13:30)
[2017-09-13] MEDS ORDERED: LORazepam 2 MG/ML VIAL IVP ONE (13:30)
[2017-09-13 13:53] LABS: GLUCOSE,POINT OF CARE 119 MG/DL (70-110)
[2017-09-13] MEDS ORDERED: SODIUM CHLORIDE 0.9% 250 ML IV ONE (14:16)
[2017-09-13] MEDS: CARVEDILOL 6.25 MG TABLET PO SCH ×2 (14:26→21:21)
[2017-09-13] MEDS: AMPICILLIN SODIUM/SULBACTAM NA 1.5 GM in SODIUM CHLORIDE 0.9% 50 ML IV SCH ×2 (14:27→22:16)
[2017-09-13] MEDS: SEVELAMER CARBONATE 800 MG TABLET PO SCH ×2 (14:27→18:36)
[2017-09-13] MEDS: INSULIN ASPART 100 UNITS/ML SQ PRN ×3 (14:29→22:15)
[2017-09-13 14:52] LABS: GLUCOSE,POINT OF CARE 159 MG/DL (70-110)
[2017-09-13] MEDS: LOSARTAN POTASSIUM 25 MG TABLET PO SCH ×2 (15:46→22:11)
[2017-09-13 20:33] LABS: GLUCOSE,POINT OF CARE 124 MG/DL (70-110)
[2017-09-13] MEDS: INSULIN DETEMIR 100 UNITS/ML SQ SCH (22:13)
[2017-09-14 00:03] VITALS: BP 121/59
[2017-09-14 04:27] VITALS: BP 133/64
[2017-09-14] MEDS: AMPICILLIN SODIUM/SULBACTAM NA 1.5 GM in SODIUM CHLORIDE 0.9% 50 ML IV SCH ×2 (06:40→14:00)
[2017-09-14 07:23] LABS: CREATININE 5.18 mg/dL (0.60-1.30); PHOSPHORUS 5.4 mg/dL (2.5-4.9); POTASSIUM 4.9 mmol/L (3.5-5.1)
[2017-09-14 07:43] VITALS: BP_SYST 115; BP_SYST 140; BP_DIAS 60; BP_DIAS 69
[2017-09-14] MEDS: INSULIN DETEMIR 100 UNITS/ML SQ SCH (09:00)
[2017-09-14] MEDS: -PHARMACY NOTE- MISC SCH ×2 (09:00)
[2017-09-14] MEDS: LOSARTAN POTASSIUM 25 MG TABLET PO SCH ×2 (09:13→22:31)
[2017-09-14] MEDS: SEVELAMER CARBONATE 800 MG TABLET PO SCH ×3 (09:13→17:42)
[2017-09-14] MEDS: NITROGLYCERIN 0.4 MG/HOUR PATCH TD SCH (09:13)
[2017-09-14] MEDS: PANTOPRAZOLE SODIUM 40 MG DR TABLET PO SCH (09:13)
[2017-09-14] MEDS: DOCUSATE SODIUM 100 MG CAPSULE PO SCH ×2 (09:13→22:31)
[2017-09-14] MEDS: CARVEDILOL 6.25 MG TABLET PO SCH ×2 (09:13→22:31)
[2017-09-14] MEDS: HydrALAZINE HCL 50 MG TABLET PO SCH ×3 (09:13→22:31)
[2017-09-14 11:07] LABS: GLUCOSE COMMENT 1 Received Meds; GLUCOSE,POINT OF CARE 162 MG/DL (70-110)
[2017-09-14 11:07] LABS: GLUCOSE,POINT OF CARE 72 MG/DL (70-110)
[2017-09-14 11:39] VITALS: BP 121/53
[2017-09-14] MEDS: INSULIN ASPART 100 UNITS/ML SQ PRN ×2 (12:28→17:43)
[2017-09-14 14:51] VITALS: BP 127/66
[2017-09-14 21:44] VITALS: BP 139/62
[2017-09-14] MEDS: OXYGEN THERAPY IH SCH (22:31)
[2017-09-14] MEDS: HEPARIN SODIUM,PORCINE 5,000 UNITS/ML VIAL SQ SCH (22:31)
[2017-09-15] VITALS (7 sets, daily range): BP systolic 105–136; BP diastolic 47–61
[2017-09-15 06:19] LABS: GLUCOSE COMMENT 1 Doctor Notified; GLUCOSE,POINT OF CARE 70 MG/DL (70-110)
[2017-09-15 06:19] LABS: GLUCOSE COMMENT 1 Received Meds; GLUCOSE,POINT OF CARE 164 MG/DL (70-110)
[2017-09-15 06:19] LABS: GLUCOSE COMMENT 1 Received Meds; GLUCOSE,POINT OF CARE 158 MG/DL (70-110)
[2017-09-15 06:19] LABS: GLUCOSE,POINT OF CARE 101 MG/DL (70-110)
[2017-09-15] MEDS: OXYGEN THERAPY IH SCH ×2 (08:13→20:30)
[2017-09-15] MEDS: SEVELAMER CARBONATE 800 MG TABLET PO SCH ×3 (08:13→18:11)
[2017-09-15] MEDS: DOCUSATE SODIUM 100 MG CAPSULE PO SCH ×2 (08:13→20:33)
[2017-09-15] MEDS: HydrALAZINE HCL 50 MG TABLET PO SCH ×3 (08:13→21:00)
[2017-09-15] MEDS: CARVEDILOL 6.25 MG TABLET PO SCH ×2 (08:14→23:38)
[2017-09-15] MEDS: HEPARIN SODIUM,PORCINE 5,000 UNITS/ML VIAL SQ SCH ×2 (08:14→20:33)
[2017-09-15] MEDS: LOSARTAN POTASSIUM 25 MG TABLET PO SCH ×2 (08:14→21:00)
[2017-09-15] MEDS: PANTOPRAZOLE SODIUM 40 MG DR TABLET PO SCH (08:14)
[2017-09-15] MEDS: -PHARMACY NOTE- MISC SCH ×2 (08:15)
[2017-09-15] MEDS: NITROGLYCERIN 0.4 MG/HOUR PATCH TD SCH (08:15)
[2017-09-15] MEDS: INSULIN ASPART 100 UNITS/ML SQ PRN ×2 (12:06→17:41)
[2017-09-15 14:52] LABS: GLUCOSE,POINT OF CARE 92 MG/DL (70-110)
[2017-09-15 14:57] LABS: GLUCOSE COMMENT 1 Received Meds; GLUCOSE,POINT OF CARE 243 MG/DL (70-110)
[2017-09-15] MEDS: AMPICILLIN SODIUM/SULBACTAM NA 3 GM in SODIUM CHLORIDE 0.9% 100 ML IV SCH (17:32)
[2017-09-15 18:47] LABS: GLUCOSE COMMENT 1 Received Meds; GLUCOSE,POINT OF CARE 158 MG/DL (70-110)
[2017-09-16 05:32] VITALS: BP 133/63
[2017-09-16] MEDS: INSULIN ASPART 100 UNITS/ML SQ PRN ×3 (06:32→21:14)
[2017-09-16] MEDS: OXYGEN THERAPY IH SCH ×2 (08:00→20:00)
[2017-09-16] MEDS: DOCUSATE SODIUM 100 MG CAPSULE PO SCH ×2 (08:35→21:13)
[2017-09-16] MEDS: HEPARIN SODIUM,PORCINE 5,000 UNITS/ML VIAL SQ SCH ×2 (08:35→20:37)
[2017-09-16] MEDS: PANTOPRAZOLE SODIUM 40 MG DR TABLET PO SCH (08:35)
[2017-09-16] MEDS: EPOETIN ALFA 10,000 UNITS/ML VIAL SQ SCH (08:36)
[2017-09-16] MEDS: SEVELAMER CARBONATE 800 MG TABLET PO SCH ×3 (08:36→18:50)
[2017-09-16 08:37] VITALS: BP 111/51
[2017-09-16 11:40] VITALS: BP 126/62
[2017-09-16] MEDS: CARVEDILOL 6.25 MG TABLET PO SCH ×2 (13:21→23:44)
[2017-09-16] MEDS: NITROGLYCERIN 0.4 MG/HOUR PATCH TD SCH (13:22)
[2017-09-16] MEDS: LOSARTAN POTASSIUM 25 MG TABLET PO SCH ×2 (13:22→23:44)
[2017-09-16] MEDS: HydrALAZINE HCL 50 MG TABLET PO SCH ×3 (13:22→23:44)
[2017-09-16 15:47] VITALS: BP 111/52
[2017-09-16] MEDS ORDERED: SODIUM CHLORIDE 0.9% 250 ML IV ONE (18:49)
[2017-09-16] MEDS: AMPICILLIN SODIUM/SULBACTAM NA 3 GM in SODIUM CHLORIDE 0.9% 100 ML IV SCH (18:51)
[2017-09-16 20:04] VITALS: BP 110/59
[2017-09-16 23:27] VITALS: BP 101/57
[2017-09-17 05:09] VITALS: BP 116/52
[2017-09-17 07:04] LABS: BASOPHILS # (AUTO) 0.02 K/uL (0.00-0.20); BASOPHILS % (AUTO) 0.3 % (0.0-2.0); EOSINOPHILS % (AUTO) 5.22 % (1.0-6.0); HEMOGLOBIN 10.1 g/dL (13.5-17.5); LYMPHOCYTES # (AUTO) 1.4 K/uL (1.0-4.8); LYMPHOCYTES % (AUTO) 24.3 % (22.0-44.0); MEAN CORPUSCULAR HEMOGLOBIN 35.1 pg (26.0-34.0); MEAN CORPUSCULAR HGB CONC 32.4 G/dL (31.0-37.0); MEAN CORPUSCULAR VOLUME 108 fL (80-100); MONOCYTES # (AUTO) 0.6 K/uL (0.1-1.0); NEUTROPHILS # (AUTO) 3.4 K/uL (1.8-7.7); NEUTROPHILS % (AUTO) 60.1 % (40.0-70.0); PLATELET COUNT (AUTO) 88 K/uL (150-450); RED BLOOD CELL COUNT(AUTO) 2.86 MIL/uL (4.50-5.90); RED CELL DISTRIBUTION WIDTH 17.9 % (11.5-14.5); WHITE BLOOD COUNT (AUTO) 5.7 K/uL (4.5-11.0)
[2017-09-17 07:12] LABS: INR 1.1 (0.9-1.1)
[2017-09-17 07:29] LABS: CALCIUM, TOTAL 9.5 mg/dL (8.8-10.5); CREATININE 5.35 mg/dL (0.60-1.30); MAGNESIUM 2.2 mg/dL (1.80-2.40); PHOSPHORUS 4.8 mg/dL (2.5-4.9)
[2017-09-17 07:34] VITALS: BP 116/69
[2017-09-17] MEDS: SEVELAMER CARBONATE 800 MG TABLET PO SCH ×3 (08:00→22:43)
[2017-09-17] MEDS: HydrALAZINE HCL 50 MG TABLET PO SCH ×3 (08:20→22:42)
[2017-09-17] MEDS: LOSARTAN POTASSIUM 25 MG TABLET PO SCH (08:23)
[2017-09-17] MEDS: DOCUSATE SODIUM 100 MG CAPSULE PO SCH ×2 (08:25→22:42)
[2017-09-17] MEDS: CARVEDILOL 6.25 MG TABLET PO SCH (08:25)
[2017-09-17] MEDS: HEPARIN SODIUM,PORCINE 5,000 UNITS/ML VIAL SQ SCH ×3 (08:25→21:00)
[2017-09-17] MEDS: PANTOPRAZOLE SODIUM 40 MG DR TABLET PO SCH (08:25)
[2017-09-17] MEDS: NITROGLYCERIN 0.4 MG/HOUR PATCH TD SCH (08:26)
[2017-09-17 10:04] LABS: RBC MORPHOLOGY COMMENT ABNORMAL RBC MORPH
[2017-09-17 11:57] VITALS: BP 134/60
[2017-09-17 13:53] LABS: GLUCOSE,POINT OF CARE 186 MG/DL (70-110)
[2017-09-17 13:53] LABS: GLUCOSE COMMENT 1 Received Meds; GLUCOSE,POINT OF CARE 232 MG/DL (70-110)
[2017-09-17 13:53] LABS: GLUCOSE,POINT OF CARE 80 MG/DL (70-110)
[2017-09-17 15:41] VITALS: BP 146/64
[2017-09-17] MEDS ORDERED: MIDAZOLAM HCL 2 MG/2 ML VIAL IVP ONE (18:30)
[2017-09-17] MEDS ORDERED: FentaNYL CITRATE-PF 100 MCG/2 ML VIAL IVP ONE (18:30)
[2017-09-17 20:34] VITALS: BP 142/81
[2017-09-17] MEDS: AMPICILLIN SODIUM/SULBACTAM NA 3 GM in SODIUM CHLORIDE 0.9% 100 ML IV SCH (22:43)
[2017-09-18 00:07] VITALS: BP 122/50
[2017-09-18] MEDS: CARVEDILOL 6.25 MG TABLET PO SCH (00:51)
[2017-09-18] MEDS: LOSARTAN POTASSIUM 25 MG TABLET PO SCH ×2 (00:52→09:00)
[2017-09-18 04:19] VITALS: BP 132/77
[2017-09-18] MEDS: INSULIN ASPART 100 UNITS/ML SQ PRN (06:23)
[2017-09-18 07:16] VITALS: BP 119/60
[2017-09-18] MEDS: SEVELAMER CARBONATE 800 MG TABLET PO SCH (08:00)
[2017-09-18] MEDS: HEPARIN SODIUM,PORCINE 5,000 UNITS/ML VIAL SQ SCH (09:00)
[2017-09-18] MEDS: EPOETIN ALFA 10,000 UNITS/ML VIAL SQ SCH (09:00)
[2017-09-18] MEDS: HydrALAZINE HCL 50 MG TABLET PO SCH (09:00)
[2017-09-18] MEDS: NITROGLYCERIN 0.4 MG/HOUR PATCH TD SCH (09:00)
[2017-09-18] MEDS: PANTOPRAZOLE SODIUM 40 MG DR TABLET PO SCH (09:00)
[2017-09-18] MEDS: DOCUSATE SODIUM 100 MG CAPSULE PO SCH (09:00)
[2017-09-18 11:17] VITALS: BP 115/50
[2017-09-18 12:00] VITALS: BP 90/38
[2017-09-18 12:35] LABS: TEMPERATURE, FAHRENHEIT, BG 98.6 FAHREN (96.0-98.6)
[2017-09-18] MEDS ORDERED: DOPamine HCL 400 MG/D5%-WATER 250 ML IV PRN (12:44)
[2017-09-18 12:58] LABS: CALCIUM, TOTAL 9.8 mg/dL (8.8-10.5); CREATININE 6.96 mg/dL (0.60-1.30); POTASSIUM 5.9 mmol/L (3.5-5.1)
[2017-09-18] MEDS ORDERED: SODIUM BICARBONATE [ADULT] 8.4% 50 MEQ/50 ML SYRINGE IVP ONE ×3 (13:00→16:43)
[2017-09-18 13:04] LABS: ALBUMIN 2.6 g/dL (3.4-5.0)
[2017-09-18 13:18] LABS: ABG A-A DIFF O2 412.3 mmHg (10-20.0); ABG BASE EXCESS -0.2 mmol/L (-2.0-3.0); ABG HCO3 24.8 mmol/L (22.0-26.0); ABG PCO2 31 mmHg (35-45); ABG PH 7.487 (7.35-7.450); ALLEN TEST, BLOOD GAS Positive
[2017-09-18] MEDS ORDERED: SODIUM POLYSTYRENE SULFONATE 15 GM/60 ML SUSPENSION BOTTLE PO ONE (13:45)
[2017-09-18] MEDS ORDERED: RAPID SEQUENCE KIT [RSI] 1 EACH KIT ONE ×2 (14:00)
[2017-09-18] MEDS ORDERED: VECURONIUM BROMIDE 10 MG/VIAL ONE (14:00)
[2017-09-18] MEDS ORDERED: PHENYLEPHRINE 200 MG/D5%-WATER 250 ML IV PRN (14:15)
[2017-09-18] MEDS ORDERED: NOREPINEPHRINE 4 MG/D5%-WATER 250 ML IV PRN (14:15)
[2017-09-18] MEDS ORDERED: EPINEPHrine 1:10,000 [1 MG/10 ML] SYRINGE ONE (14:24)
[2017-09-18] MEDS ORDERED: CALCIUM GLUCONATE 100 MG/ML 10 ML IVP ONE ×2 (16:42→16:43)
[2017-09-18] MEDS ORDERED: ATROPINE SULFATE 0.1 MG/ML 10 ML SYRINGE IVP ONE ×2 (16:42→16:43)
[2017-09-18] MEDS ORDERED: EPINEPHrine 1:10,000 [1 MG/10 ML] SYRINGE IVP ONE (16:42)
[2017-09-18] MEDS ORDERED: DEXTROSE 50%-WATER 25 GM/50 ML SYRINGE IVP ONE (16:42)
[2017-09-18] MEDS ORDERED: DOPamine HCL/D5W 400 MG/250 ML IV BAG IV ONE (16:43)
[2017-09-19 06:18] LABS: GLUCOSE,POINT OF CARE 182 MG/DL (70-110)
[2017-09-19 06:18] LABS: GLUCOSE,POINT OF CARE 85 MG/DL (70-110)
[2017-09-20 19:33] LABS: GLUCOSE,POINT OF CARE 133 MG/DL (70-110)
[2017-09-20 19:34] LABS: GLUCOSE,POINT OF CARE 101 MG/DL (70-110)
[2017-09-20 19:34] LABS: GLUCOSE,POINT OF CARE 99 MG/DL (70-110)
[2017-09-20 19:34] LABS: GLUCOSE,POINT OF CARE 139 MG/DL (70-110)
[2017-09-20 19:35] LABS: GLUCOSE COMMENT 1 Received Meds; GLUCOSE,POINT OF CARE 197 MG/DL (70-110)
[2017-09-20 19:35] LABS: GLUCOSE,POINT OF CARE 80 MG/DL (70-110)
== END 2017-09-18 14:42 | disposition expired | DRG 270 ==
LOC: EMS 14:41 → 5S 18:57 → ICU 09-18 13:34
PROVIDERS: ADMIT Hospitalist; ATTEND Hospitalist
PROC: 5A1D70Z Performance of Urinary Filtration, Intermittent, Less than 6 Hours Per Day (ICD-10-PCS; principal; 2017-09-13)
PROC: 5A1D70Z Performance of Urinary Filtration, Intermittent, Less than 6 Hours Per Day (ICD-10-PCS; 2017-09-16)
PROC: 047L341 Dilation of Left Femoral Artery with Drug-eluting Intraluminal Device, using Drug-Coated Balloon, Percutaneous Approach (ICD-10-PCS; 2017-09-17)
PROC: [UNRECOGNIZED PROCEDURE] (2017-09-17)
PROC: 047N3ZZ Dilation of Left Popliteal Artery, Percutaneous Approach (ICD-10-PCS; 2017-09-17)
PROC: B41J1ZZ Fluoroscopy of Other Lower Arteries using Low Osmolar Contrast (ICD-10-PCS; 2017-09-17)
PROC: B44GZZZ Ultrasonography of Left Lower Extremity Arteries (ICD-10-PCS; 2017-09-17)
DX: E11.52 Type 2 diabetes mellitus with diabetic peripheral angiopathy with gangrene (principal); N18.6 End stage renal disease; I13.2 Hypertensive heart and chronic kidney disease with heart failure and with stage 5 chronic kidney disease, or end stage renal disease; E11.22 Type 2 diabetes mellitus with diabetic chronic kidney disease; E11.621 Type 2 diabetes mellitus with foot ulcer; M86.9 Osteomyelitis, unspecified; E87.5 Hyperkalemia; N25.81 Secondary hyperparathyroidism of renal origin; E87.70 Fluid overload, unspecified; E78.00 Pure hypercholesterolemia, unspecified; E78.5 Hyperlipidemia, unspecified; I25.10 Atherosclerotic heart disease of native coronary artery without angina pectoris; I50.9 Heart failure, unspecified; L97.509 Non-pressure chronic ulcer of other part of unspecified foot with unspecified severity; M10.9 Gout, unspecified; R09.02 Hypoxemia; Z79.4 Long term (current) use of insulin; Z82.49 Family history of ischemic heart disease and other diseases of the circulatory system; Z83.3 Family history of diabetes mellitus; Z86.73 Personal history of transient ischemic attack (TIA), and cerebral infarction without residual deficits; Z86.74 Personal history of sudden cardiac arrest; Z87.891 Personal history of nicotine dependence; I25.2 Old myocardial infarction; Z95.1 Presence of aortocoronary bypass graft; Z95.5 Presence of coronary angioplasty implant and graft; Z99.2 Dependence on renal dialysis
CPT/HCPCS: 36245; 73718; 75710; 76937; 82805; 82962; 83735; 84100; 85651; 86140; 87081; 87340; 90935; 92950; 93005; 93925; 96365; 99285; J0171; J0295; J0461; J0610; J0885; J1265; J1270; J1644; J1815; J2060; J2370; J3490; J7050